=== PATIENT | female | born 1995 | race Caucasian/White ===

== ENCOUNTER 2018-03-26 14:42 | Emergency (ER) | payer OTHER ==
[2018-03-26] MEDS ORDERED: MORPHINE SULFATE 2 MG/ML SYRINGE IM STA (15:05)
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
--- NOTE | 2018-03-26 15:45 | XR ---
EXAMINATION TYPE: XR chest 1V portable DATE OF EXAM: 03/26/2018 COMPARISON: 07/16/2016 INDICATION: Pain TECHNIQUE: Single frontal view of the chest is obtained. FINDINGS: The heart size is normal. The pulmonary vasculature is normal. The lungs are clear. No pneumothorax is evident. Minimal blunting the right costophrenic angle is present. IMPRESSION: 1. Minimal fluid may be at the right costophrenic angle. Chest otherwise unremarkable.
--- NOTE | 2018-03-26 15:47 | XR ---
Fluoroscopy INDICATION: Pain FINDINGS: Left femur is examined in 2 views. No acute fractures are evident. Joint spaces appear pres erved. In the medial left inguinal region there is a radiopaque foreign body of uncertain origin or e tiology. IMPRESSIONS: 1. No acute osseous abnormality. 2. Foreign body in or near the left inguinal region.
[2018-03-26 16:04] VITALS: BP 115/70; PULSE 87; RESP 16; TEMP 98.3
== END 2018-03-26 16:06 | disposition home or self-care (01) ==
LOC: EC 14:42
DX: S00.03XA Contusion of scalp, initial encounter (principal); S70.12XA Contusion of left thigh, initial encounter; S00.81XA Abrasion of other part of head, initial encounter; J45.909 Unspecified asthma, uncomplicated; Z87.891 Personal history of nicotine dependence; V43.52XA Car driver injured in collision with other type car in traffic accident, initial encounter; Y93.89 Activity, other specified; Y92.410 Unspecified street and highway as the place of occurrence of the external cause
CPT/HCPCS: 99284; 96372; 72170; 73552; 71045; 72125; 70486; 70450; J2270

== ENCOUNTER 2018-05-15 16:48 | Emergency (ER) | payer OTHER ==
[2018-05-15 16:59] VITALS: BP 99/65; PULSE 103; RESP 18; TEMP 98.2
[2018-05-15 18:59] LABS: Appearance,Urine Clear (Clear); Bilirubin,Urine Negative (Negative); Blood,Urine Negative (Negative); Color,Urine Yellow; Glucose,Urine (UA) Negative (Negative); Ketones,Urine Negative (Negative); Leukocyte Esterase,Urine Negative (Negative); Nitrite,Urine Negative (Negative); PH, Urine 6.5 (5.0-8.0); Protein,Urine Negative (Negative); Specific Gravity,Urine 1.021 (1.001-1.035)
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
[2018-05-15] MEDS ORDERED: ACETAMINOPHEN TAB 500 MG TAB PO STA (19:51)
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
== END 2018-05-15 21:07 | disposition home or self-care (01) ==
LOC: EC 16:48
DX: O99.89 Other specified diseases and conditions complicating pregnancy, childbirth and the puerperium (principal); M54.5 Low back pain; O99.511 Diseases of the respiratory system complicating pregnancy, first trimester; J45.909 Unspecified asthma, uncomplicated; Z67.10 Type A blood, Rh positive; Z87.891 Personal history of nicotine dependence; Z3A.01 Less than 8 weeks gestation of pregnancy; W10.9XXA Fall (on) (from) unspecified stairs and steps, initial encounter
CPT/HCPCS: 36415; 76801; 81003; 84702; 86900; 86901; 99284

== ENCOUNTER → 2018-07-07 | Outpatient (CLI) | payer OTHER ==
--- NOTE | 2018-07-07 13:50 | US ---
EXAMINATION TYPE: Transabdominal DATE OF EXAM: 01/06/18 COMPARISON: 05/15/2018 CLINICAL HISTORY: Z36 VIABILITY. EXAM PERFORMED: Transabdominal (TA) EXAM MEASUREMENTS: GESTATIONAL AGE / DATING Physician Established: Not yet established Dates by LMP: (13 weeks/2 days) EDC: 01/10/2019 Dates by First Scan: no IUP seen on first scan Dates by Current Scan for: (13 weeks/6 days) EDC: 01/06/2019 MATERNAL ANATOMY Uterus: 10.0 x 8.7 x 10.0cm Right Ovary: 3.3 x 1.7 x 2.8 cm Left Ovary: 3.1 x 1.9 x 2.8 cm Post CDS / Adnexa: wnl Presence of free fluid: none GESTATION / SURVEY CRL: 7.7 cm (13 weeks/6 days) Yolk Sac (normal less than 6mm): not seen Heart Rate: 168 bpm Rhythm: Normal IUP: Viable IUP Date of LMP: 04/05/2018 Viable IUP that correlates with LMP. IMPRESSION: Viable IUP of 13 weeks 6 days with an EDC of 01/06/2019 and heart rate of 168 bpm.
[2018-07-07 14:14] LABS: HCT 38.9 % (34.0-46.0); HGB 13.5 gm/dL (11.4-16.0); MCHC 34.8 g/dL (31.0-37.0); MCV 86.4 fL (80.0-100.0); Mean Platelet Volume 6.3; Platelet Count 262 k/uL (150-450); RBC 4.51 m/uL (3.80-5.40); RDW 12.9 % (11.5-15.5); WBC 7.6 k/uL (3.8-10.6)
[2018-07-07 16:27] LABS: Glucose 61 mg/dL (74-99)
[2018-07-07 22:50] LABS: HIV 1 AB Non-Reactive (Non-Reactive); HIV AB P24 Non-Reactive (Non-Reactive); HIV P24 AG Non-Reactive (Non-Reactive)
[2018-07-08 06:57] LABS: Toxoplasma Antibody (IgG) 23.7 IU/mL (<7.2); Toxoplasma Antibody (IgM) 3.7 AU/mL (<8.0)
== END | disposition home or self-care (01) ==
LOC: RADUSWWP 13:21
PROVIDERS: ATTEND Obstetrics & Gynecology
DX: Z36.9 Encounter for antenatal screening, unspecified (principal); Z34.81 Encounter for supervision of other normal pregnancy, first trimester; Z3A.13 13 weeks gestation of pregnancy
CPT/HCPCS: 36415; 76801; 82565; 82947; 85027; 86762; 86777; 86778; 86780; 86850; 86900; 86901; 87340; 87390

== ENCOUNTER 2018-10-01 07:44 | Emergency (ER) | payer OTHER ==
[2018-10-01 07:50] VITALS: RESP 18; TEMP 97.4
[2018-10-01] MEDS ORDERED: IPRATROPIUM 0.5 MG/2.5 ML NEBU INHALATION STA (07:53)
[2018-10-01] MEDS ORDERED: ALBUTEROL NEBULIZED 2.5 MG/3 ML INHALATION STA (07:53)
[2018-10-01] MEDS ORDERED: DEXAMETHASONE 4 MG TAB PO STA (08:23)
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
[2018-10-01 09:27] VITALS: BP 108/72; PULSE 98
== END 2018-10-01 09:25 | disposition home or self-care (01) ==
LOC: EC 07:44
DX: J45.901 Unspecified asthma with (acute) exacerbation (principal); R00.0 Tachycardia, unspecified; Z87.891 Personal history of nicotine dependence
CPT/HCPCS: 94640; 99285; J8540

== ENCOUNTER 2018-10-10 17:52 | Emergency (ER) | payer OTHER ==
[2018-10-10 17:58] VITALS: BP 107/62; PULSE 110; RESP 18; TEMP 98.1
[2018-10-10] MEDS ORDERED: ACETAMINOPHEN TAB 500 MG TAB PO STA (18:18)
[2018-10-10] MEDS ORDERED: PENICILLIN VK 500MG STARTER 4 TAB BTL PO STA (18:24)
--- NOTE | 2018-10-10 18:25 | ED ---
General Adult HPI - General Chief complaint: ENT Stated complaint: jaw pain Time Seen by Provider: 10/10/18 17:59 Source: patient Mode of arrival: ambulatory Limitations: no limitations - History of Present Illness Initial comments: 23-year-old female patient presents to the emergency department today for evaluation of right upper and lower jaw pain. Patient is 27 weeks . States that just prior to become impressionneeded to have her wisdom teeth removed but was unable to do so due to the . Patient states that she' s had pain to the jaw for the last 2-3 days. States it hurts worse when she bites down on food. She denies any fevers or chills or swelling to the face. She denies any trismus or difficulty swallowing. Patient denies any recent rash , fever, chills, shortness breath, chest pain, abdominal pain, nausea, vomiting , diarrhea, constipation, back pain, numbness, tingling, dizziness, weakness, hematuria, dysuria, urinary urgency, urinary frequency, headache, visual changes , or any other complaints. She denies any vaginal bleeding or discharge. Denies any concerns with the . - Related Data Home Medications Medication Instructions Recorded Confirmed Hok-Ktml-Gjski Acid 1 cap PO DAILY 10/01/18 10/10/18 [-U Capsule (formulary)] Albuterol Sulfate [Proair Hfa] 1 - 2 puff INHALATION RT-QID PRN 10/10/18 Previous Rx's Medication Instructions Recorded Penicillin V Potassium [Pen Vee K] 500 mg PO Q6H #40 tablet 10/10/18 Allergies Allergy/AdvReac Type Severity Reaction Status Date / Time No Known Allergies Allergy Verified 10/10/18 18:14 Review of Systems ROS Statement: Those systems with pertinent positive or pertinent negative responses have been documented in the HPI. ROS Other: All systems not noted in ROS Statement are negative. Past Medical History Past Medical History: Asthma, Seizure Disorder Additional Past Medical History / Comment(s): migraines, pt had seizure in ER -pt states she had a seizure 2 days ago as well. History of Any Multi-Drug Resistant Organisms: None Reported Past Surgical History: No Surgical Hx Reported Past Anesthesia/Blood Transfusion Reactions: No Reported Reaction Past Psychological History: Anxiety, Bipolar, Depression Smoking Status: Former smoker Past Alcohol Use History: None Reported Past Drug Use History: None Reported - Past Family History Mother Additional Family Medical History / Comment(s): Pt states her mother is addicted to heroin and crack. Father Additional Family Medical History / Comment(s): Pt states her father is incarcerated for sexual assault. General Exam Limitations: no limitations General appearance: alert, in no apparent distress, other (Social well-developed , well-nourished adult female patient in no acute distress. Vital signs upon presentation are temperature 98.1F, pulse 110, respirations 18, blood pressure 107/62, pulse ox 100% on room air.) Eye exam: Present: normal appearance, PERRL, EOMI. Absent: scleral icterus, conjunctival injection, periorbital swelling ENT exam: Present: normal exam, normal oropharynx, mucous membranes moist, other (No evidence of gingival erythema or swelling. She does have gingival tenderness over the upper and lower right side.) Respiratory exam: Present: normal lung sounds bilaterally. Absent: respiratory distress, wheezes, rales, rhonchi, stridor Cardiovascular Exam: Present: regular rate, normal rhythm, normal heart sounds. Absent: systolic murmur, diastolic murmur, rubs, gallop, clicks GI/Abdominal exam: Present: soft, normal bowel sounds. Absent: distended, tenderness, guarding, rebound, rigid Neurological exam: Present: alert, oriented X3, CN II-XII intact Psychiatric exam: Present: normal affect, normal mood Skin exam: Present: warm, dry, intact, normal color. Absent: rash Course Vital Signs 10/10/18 17:55 Temperature 98.1 F Pulse Rate 110 H Respiratory 18 Rate Blood Pressure 107/62 O2 Sat by Pulse 100 Oximetry Medical Decision Making - Medical Decision Making 23-year-old female patient presents to the emergency department today for evaluation of right-sided dental pain. Physical examination is relatively unremarkable. She did have gingival tenderness and until tenderness in the right upper and lower. Patient be started on pen VK. She is instructed take Tylenol for pain control do cool compresses. Patient is instructed to follow up with dentist as soon as possible. Return parameters were discussed in detail. She verbalizes understanding and agrees with this plan. Disposition Clinical Impression: Pain, dental Disposition: HOME SELF-CARE Condition: Good Instructions: Toothache (ED) Additional Instructions: Take medication as directed. Follow up with the dentist as soon as possible. Return to the emergency department for recheck for any new, worsening, or concerning symptoms. Prescriptions: Penicillin V Potassium [Pen Vee K] 500 mg PO Q6H #40 tablet Is patient prescribed a controlled substance at d/c from ED?: No Referrals: Katherine Johnson MD [Primary Care Provider] - 1-2 days Time of Disposition: 18:25
== END 2018-10-10 19:00 | disposition home or self-care (01) ==
LOC: EC 17:52
DX: O99.612 Diseases of the digestive system complicating pregnancy, second trimester (principal); K08.89 Other specified disorders of teeth and supporting structures; O99.89 Other specified diseases and conditions complicating pregnancy, childbirth and the puerperium; R68.84 Jaw pain; O99.512 Diseases of the respiratory system complicating pregnancy, second trimester; J45.909 Unspecified asthma, uncomplicated; Z87.891 Personal history of nicotine dependence; Z3A.27 27 weeks gestation of pregnancy
CPT/HCPCS: 99283

== ENCOUNTER → 2018-10-23 | Outpatient (CLI) | payer OTHER ==
--- NOTE | 2018-10-23 16:36 | US ---
EXAMINATION TYPE: US OB anatomy transabd DATE OF EXAM: 10/23/2018 COMPARISON: NONE HISTORY: O99.513 Diseases of the respiratory system Asthma TECHNIQUE: Transabdominal (TA) EXAM MEASUREMENTS: GESTATIONAL AGE / DATING Physician Established: (28 weeks/6 days) EDC: 01/09/19 Dates by LMP: (28 weeks/5 days) EDC: 01/10/19 Dates by First Scan: (29 weeks/2 days) EDC: 01/06/19 Dates by Current Scan for: (28 weeks/5 days) EDC: 01/10/19 SURVEY IUP: Single PLACENTA: Posterior PREVIA: No previa MANDY: 12.4 cm Normal CERVICAL LENGTH (transabdominal: norm > 3.0cm): 3.1 cm BIOMETRY PRESENTATION: Vertex LIE: Longitudinal BPD: 7.4 cm 29 weeks / 6 days HC: 26.9 cm 29 weeks / 3 days AC: 23.7 cm 28 weeks / 0 days FL: 5.5 cm 29 weeks / 1 days ESTIMATED WEIGHT IN GRAMS: 1255 grams ESTIMATED WEIGHT IN LBS/OZ: 2 lbs. 12 oz. WEIGHT PERCENTAGE BASED ON ESTABLISHED DATE: 28.3 % HC/AC: 1.14 Normal FL/AC: 23.31 Normal HEART RATE: 139 bpm RHYTHM: Normal ANATOMY SEEN (within normal limits): Four Chamber Heart Outflow tracts: LVOT/RVOT Nose / Lips Diaphragm Kidneys (bilateral) Bladder Cord Insert Three Vessel Cord Arms (bilateral) Legs (bilateral) ANATOMY NOT SEEN: due to position * Lateral Vent (< 1 cm) * Cisterna Magna (< 1.1 cm) * Nuchal Fold (< 0.6 cm) * Cerebellum (varies with age) Choroid Plexus (bilateral) Midline Falx Cavus Septi Pellucidi Stomach Situs Longitudinal Spine Transverse Spine IMPRESSION: 1. Single intrauterine gestation estimated at 28 weeks 5 days gestation based on the current ultrasou nd measurements. Cardiac activity measures 139 bpm. 2. Due to the gestational age russ small parts evaluation is very limited. Follow-up can be perform ed.
== END | disposition home or self-care (01) ==
LOC: RADUSWWP 13:08
PROVIDERS: ATTEND Obstetrics & Gynecology
DX: O99.513 Diseases of the respiratory system complicating pregnancy, third trimester (principal); Z3A.28 28 weeks gestation of pregnancy; J45.909 Unspecified asthma, uncomplicated
CPT/HCPCS: 76811

== ENCOUNTER 2019-01-08 06:00 | Inpatient (IN) | payer OTHER ==
[2019-01-08] MEDS ORDERED: TERBUTALINE 1 MG/ML VIAL SQ PRN (06:15)
[2019-01-08] MEDS ORDERED: METHYLERGONOVINE 0.2 MG/ML 1 ML AMP IM PRN (06:15)
[2019-01-08] MEDS ORDERED: LIDOCAINE 0.5% (PF) 5 MG/ML (50 ML SDV) SQ PRN (06:15)
[2019-01-08] MEDS ORDERED: CARBOPROST TROMETHAMINE 250 MCG/ML 1 ML AMP IM PRN (06:15)
[2019-01-08] MEDS ORDERED: OXYTOCIN 10 UNIT/ML 1 ML VIAL IM PRN (06:15)
[2019-01-08] MEDS: LACTATED RINGERS 1,000 ML IV SCH ×2 (06:36→12:30)
[2019-01-08 06:39] LABS: Basophils % (A) 0 %; Eosinophils # (A) 0.2 k/uL (0-0.7); Eosinophils % (A) 2 %; HCT 33.3 % (34.0-46.0); HGB 11.1 gm/dL (11.4-16.0); Hypochromasia Slight; Lymphocytes % (A) 19 %; MCH 25.6 pg (25.0-35.0); MCHC 33.3 g/dL (31.0-37.0); MCV 76.9 fL (80.0-100.0); Mean Platelet Volume 8.6; Monocytes # (A) 0.6 k/uL (0-1.0); Monocytes % (A) 6 %; Neutrophils # (A) 7.6 k/uL (1.3-7.7); Neutrophils % (A) 72 %; Platelet Count 360 k/uL (150-450); RBC 4.33 m/uL (3.80-5.40); RDW 15.1 % (11.5-15.5); WBC 10.5 k/uL (3.8-10.6)
[2019-01-08] MEDS ORDERED: OXYTOCIN 30 UNITS/500 ML NS 30 UNIT in SALINE 1 500ML.BAG IV SCH (06:45)
[2019-01-08 06:49] VITALS: BMI 27.8
[2019-01-08] MEDS ORDERED: BUTORPHANOL 1 MG/ML 1 ML VIAL IV PRN (10:49)
--- NOTE | 2019-01-08 12:31 | P.HPOB ---
History of Present Illness H&P Date: 01/08/19 Chief Complaint: Induction of labor 23 year old presents at 39 weeks and 6 days for induction of labor. Her cervix was 1cm, 90% effaced, -2 station. Piper irregularly. heart tones 130 with moderate variability and accelerations. Category 1 tracing. Review of Systems All systems: negative Constitutional: Denies chills, Denies fever Eyes: denies blurred vision, denies pain Ears, nose, mouth and throat: Denies headache, Denies sore throat Cardiovascular: Denies chest pain, Denies shortness of breath Respiratory: Denies cough Gastrointestinal: Denies abdominal pain, Denies diarrhea, Denies nausea, Denies vomiting Genitourinary: Denies dysuria, Denies hematuria Musculoskeletal: Denies myalgias Integumentary: Denies pruritus, Denies rash Neurological: Denies numbness, Denies weakness Psychiatric: Denies anxiety, Denies depression Endocrine: Denies fatigue, Denies weight change Past Medical History Past Medical History: Asthma, Seizure Disorder Additional Past Medical History / Comment(s): migraines, pt had seizure in ER 09/11/16, no seizures since. Obstetric history: This is her first and she's had care with me since 11 weeks gestation. Her EDC is consistent with a 13 week ultrasound. Blood type A+, antibodies negative, HIV negative, treponema and by negative, trace B-, rubella immune, toxoplasmosis negative. On the anatomy ultrasound there was an echogenic intracardiac focus. She did see MFM and had an echocardiogram with this which was normal. GBS negative. History of Any Multi-Drug Resistant Organisms: None Reported Past Surgical History: No Surgical Hx Reported Past Anesthesia/Blood Transfusion Reactions: No Reported Reaction Past Psychological History: Anxiety, Bipolar, Depression Smoking Status: Former smoker Past Alcohol Use History: None Reported Additional Past Alcohol Use History / Comment(s): Pt states she started smoking at the age of 16 or 17 yrs and quit October of 2015. Past Drug Use History: None Reported - Past Family History Mother Additional Family Medical History / Comment(s): Pt states her mother is addicted to heroin and crack. Father Additional Family Medical History / Comment(s): Pt states her father is incarcerated for sexual assault. Medications and Allergies Home Medications Medication Instructions Recorded Confirmed Type Ocn-Ysro-Jtimm Acid 1 cap PO DAILY 12/27/18 04/05/19 History [-U Capsule (formulary)] Albuterol Sulfate [Proair Hfa] 1 - 2 puff INHALATION RT-QID PRN 10/10/18 01/08/19 History Allergies Allergy/AdvReac Type Severity Reaction Status Date / Time No Known Allergies Allergy Verified 01/08/19 06:13 Exam Osteopathic Statement: *. No significant issues noted on an osteopathic structural exam other than those noted in the History and Physical/Consult. Vital Signs Temp Pulse Resp BP 01/08/19 06:13 98.1 F 107 H 16 117/68 Intake and Output 01/07/19 01/08/19 01/08/19 22:59 06:59 14:59 Other: Weight 68.946 kg Results Result Diagrams: 01/08/19 06:30 Abnormal Lab Results - Last 24 Hours (Table) 01/08/19 Range/Units 06:30 Hgb 11.1 L (11.4-16.0) gm/dL Hct 33.3 L (34.0-46.0) % MCV 76.9 L (80.0-100.0) fL
[2019-01-08] MEDS ORDERED: fentaNYL (PF) 50 MCG/ML 5 ML AMP ONE (12:38)
[2019-01-08] MEDS ORDERED: SODIUM CHLORIDE 0.9% 100 ML BAG ONE (12:38)
[2019-01-08] MEDS ORDERED: ROPIVACAINE 5MG/ML 20ML VIAL ONE (12:38)
[2019-01-09] MEDS ORDERED: ACETAMINOPHEN TAB 325 MG TAB PO PRN (00:15)
[2019-01-09] MEDS ORDERED: diphenhydrAMINE 25 MG CAP PO PRN (00:15)
[2019-01-09] MEDS ORDERED: LANOLIN CREAM 5 GM TUBE TOPICAL PRN (00:15)
[2019-01-09] MEDS ORDERED: WITCH HAZEL 1 EACH MED..PAD TOPICAL PRN (00:15)
[2019-01-09] MEDS ORDERED: BENZOCAINE/MENTHOL SPRAY 1 GM/SPRAY AEROSOL TOPICAL PRN (00:15)
[2019-01-09] MEDS ORDERED: ZOLPIDEM 5 MG TAB PO PRN (00:15)
[2019-01-09] MEDS ORDERED: diphenhydrAMINE 50 MG CAP PO PRN (00:15)
[2019-01-09] MEDS ORDERED: SIMETHICONE 80 MG CHEWABLE PO PRN (00:15)
[2019-01-09] MEDS ORDERED: HYDROCORTISONE 2.5% RECTAL CREAM 30 GM TUBE RECTAL PRN (00:15)
[2019-01-09] MEDS: IBUPROFEN 600 MG TAB PO PRN ×2 (02:16→20:49)
--- NOTE | 2019-01-09 08:20 | P.PNOBGVD ---
Subjective - Subjective Principal diagnosis: Status post normal vaginal delivery post day #1 Interval history: Patient seen and examined. Denies nausea, vomiting, chest pain, shortness of breath or calf pain. She is staying in the hospital today because her baby's jaundiced level is a little elevated. Patient reports: Reports appetite normal, Reports voiding normally, Reports pain well controlled, Reports ambulating normally Objective - Latest Vital Signs Latest vital signs: Vital Signs Temp Pulse Resp BP 01/09/19 04:00 97.8 F 85 16 109/68 01/09/19 00:00 98.1 F 91 16 121/70 01/08/19 20:00 97.6 F 81 16 106/71 01/08/19 18:16 98.1 F 101 H 16 126/62 01/08/19 17:47 99.3 F 95 16 113/66 01/08/19 17:17 96 16 111/59 01/08/19 17:02 94 16 113/61 01/08/19 16:47 108 H 16 110/64 01/08/19 16:32 102 H 16 113/57 01/08/19 16:17 98.7 F 103 H 16 120/59 Intake and Output 01/08/19 01/09/19 01/09/19 22:59 06:59 14:59 Other: # Voids 1 1 - Exam Lungs: bilateral: normal Chest: Normal S1, Normal S2 Extremities: Present: normal Abdomen: Present: normal appearance, soft Uterus: Present: normal, firm Assessment and Plan (1) Status post normal vaginal delivery Current Visit: Yes Status: Acute Code(s): OTO9251 - SNOMED Code(s): 930518660 Plan: 1. Increase ambulation 2. Post care
[2019-01-09] MEDS: SENNOSIDES-DOCUSATE SODIUM 1 EACH TAB PO SCH ×2 (19:03→20:49)
--- NOTE | 2019-01-09 23:35 | P.PROBDLV ---
Vaginal Delivery Note - . Vaginal Delivery Note: 23 year old presents at 39 weeks and 6 days for induction of labor. Her cervix was 1cm, 90% effaced, -2 station. Piper irregularly. heart tones 130 with moderate variability and accelerations. Category 1 tracing. Pitocin was started, and amniotomy was performed at 7:52 AM, clear fluid noted. When she was uncomfortable patient did get an epidural. Her cervix was completely dilated at 1518. She pushed, delivered a viable male over intact perineum under epidural anesthesia at 1557. Head delivered OA, anterior shoulder delivered gentle downward guidance followed by posterior shoulder and rest of body. Nose and mouth bulb suctioned, cord clamped and cut, infant placed on mother's abdomen. Apgars 9, 9, weight 7 lbs. 11 oz. Placenta delivered spontaneously, intact with three-vessel cord at 1559. Vagina, cervix, and perineum were inspected. A right periurethral and a second-degree midline laceration was repaired with 2-0 Vicryl and 3-0 Vicryl. Estimated blood loss 200 mL. Mother and baby in stable condition.
[2019-01-10 03:40] VITALS: RESP 16
[2019-01-10 07:34] LABS: Basophils % (A) 0 %; Eosinophils # (A) 0.3 k/uL (0-0.7); Eosinophils % (A) 2 %; HCT 26.7 % (34.0-46.0); Hypochromasia Slight; Lymphocytes # (A) 2.2 k/uL (1.0-4.8); Lymphocytes % (A) 20 %; MCH 26.5 pg (25.0-35.0); MCHC 33.7 g/dL (31.0-37.0); MCV 78.7 fL (80.0-100.0); Mean Platelet Volume 7.1; Monocytes # (A) 0.7 k/uL (0-1.0); Monocytes % (A) 7 %; Neutrophils # (A) 7.6 k/uL (1.3-7.7); Neutrophils % (A) 70 %; Platelet Count 313 k/uL (150-450); Poikilocytosis Slight; RBC 3.39 m/uL (3.80-5.40); RDW 14.8 % (11.5-15.5); WBC 10.9 k/uL (3.8-10.6)
[2019-01-10] MEDS: SENNOSIDES-DOCUSATE SODIUM 1 EACH TAB PO SCH (07:48)
--- NOTE | 2019-01-10 08:20 | P.DS ---
Providers Date of admission: 01/08/19 06:00 Expected date of discharge: 01/10/19 Attending physician: Priyanka Mejia Primary care physician: Stated None - Discharge Diagnosis(es) (1) Status post normal vaginal delivery Current Visit: Yes Status: Acute Hospital Course: Patient presented for induction of labor. She underwent normal vaginal delivery. Her course was uncomplicated. She'll be discharged home day #2 in stable condition to follow-up with me in 6 weeks. Plan - Discharge Summary New Discharge Prescriptions: New Ibuprofen [Motrin] 600 mg PO Q6HR PRN #30 tab PRN Reason: Mild Pain Or Fever >= 100.5 No Action Lqy-Fbms-Guusq Acid [-U Capsule (formulary)] 1 cap PO DAILY Albuterol Sulfate [Proair Hfa] 1 - 2 puff INHALATION RT-QID PRN PRN Reason: Shortness Of Breath Discharge Medication List Ecr-Temg-Sqpmi Acid [-U Capsule (formulary)] 1 cap PO DAILY 10/01/18 [History] Albuterol Sulfate [Proair Hfa] 1 - 2 puff INHALATION RT-QID PRN 10/10/18 [History] Ibuprofen [Motrin] 600 mg PO Q6HR PRN #30 tab 01/10/19 [Rx] Follow up Appointment(s)/Referral(s): Priyanka Mejia DO [Doctor of Osteopathic Medicine] - 6 Weeks Discharge Disposition: HOME SELF-CARE
[2019-01-10 08:44] VITALS: BP 112/72; PULSE 80; TEMP 98.2
== END 2019-01-10 11:40 | disposition home or self-care (01) | DRG 807 ==
LOC: 4FBP 06:00
PROVIDERS: ADMIT Obstetrics & Gynecology; ATTEND Obstetrics & Gynecology
PROC: 10E0XZZ Delivery of Products of Conception, External Approach (ICD-10-PCS; principal; 2019-01-08)
PROC: 0KQM0ZZ Repair Perineum Muscle, Open Approach (ICD-10-PCS; 2019-01-08)
PROC: 10907ZC Drainage of Amniotic Fluid, Therapeutic from Products of Conception, Via Natural or Artificial Opening (ICD-10-PCS; 2019-01-08)
PROC: 3E033VJ Introduction of Other Hormone into Peripheral Vein, Percutaneous Approach (ICD-10-PCS; 2019-01-08)
PROC: 00HU33Z Insertion of Infusion Device into Spinal Canal, Percutaneous Approach (ICD-10-PCS; 2019-01-08)
PROC: 3E0R3BZ Introduction of Anesthetic Agent into Spinal Canal, Percutaneous Approach (ICD-10-PCS; 2019-01-08)
DX: O99.354 Diseases of the nervous system complicating childbirth (principal); Z37.0 Single live birth; O99.52 Diseases of the respiratory system complicating childbirth; O70.1 Second degree perineal laceration during delivery; G40.909 Epilepsy, unspecified, not intractable, without status epilepticus; O99.344 Other mental disorders complicating childbirth; F31.9 Bipolar disorder, unspecified; F41.9 Anxiety disorder, unspecified; J45.909 Unspecified asthma, uncomplicated; G43.909 Migraine, unspecified, not intractable, without status migrainosus; Z3A.39 39 weeks gestation of pregnancy; Z87.891 Personal history of nicotine dependence
CPT/HCPCS: 85025; 86850; 86900; 86901

== ENCOUNTER → 2019-09-01 | Outpatient (CLI) | payer OTHER ==
--- NOTE | 2019-09-01 15:30 | US ---
EXAMINATION TYPE: Transabdominal DATE OF EXAM: 09/01/2019 2:26 PM COMPARISON: NONE CLINICAL HISTORY: Z36 confirm dates. Dates positive beta-hCG test. EXAM PERFORMED: Transabdominal (TA) EXAM MEASUREMENTS: GESTATIONAL AGE / DATING Dates by LMP: (12 weeks/5 days) EDC: 03/10/2020 Dates by First Scan: No previous this is first scan Dates by Current Scan for: (10 weeks/3 days) EDC: 03/26/2020 MATERNAL ANATOMY Uterus: 8.4 x 8.7 x 7.1 cm Right Ovary: 2.6 x 1.3 x 1.5 cm Left Ovary: 3.2 x 2.2 x 2.1 cm Post CDS / Adnexa: no free fluid Presence of free fluid: no Presence of corpus luteal cyst: no Presence of subchorionic bleed: no GESTATION / SURVEY CRL: 3.6 cm (10 weeks/3 days) MSD: seen, not measured Yolk Sac (normal less than 6mm): 5.0 mm Heart Rate: 172 bpm Rhythm: Normal IUP: Viable IUP Date of LMP: 06/04/2019, Beta HcG (if available): Not available at this time Single live IUP measuring 10 weeks 3 days. Single live intrauterine gestation is confirmed as gestational sac, yolk sac, pole are present. No free fluid in pelvic cul-de-sac. Both ovaries are seen. No suspicious extraovarian adnexal masses. IMPRESSION: Single live intrauterine gestation, mean crown-rump length is 3.6 cm corresponding to 10 week 3 day old fetus.
== END | disposition home or self-care (01) ==
LOC: RADUSWWP 14:05
PROVIDERS: ATTEND Obstetrics & Gynecology
DX: Z36.89 Encounter for other specified antenatal screening (principal); Z3A.10 10 weeks gestation of pregnancy
CPT/HCPCS: 76801

== ENCOUNTER 2019-09-27 20:58 | Emergency (ER) | payer OTHER ==
[2019-09-27 21:09] VITALS: TEMP 97.8
--- NOTE | 2019-09-27 21:56 | ED ---
Abdominal Pain HPI - General Chief Complaint: Abdominal Pain Stated Complaint: Abd Pain-14 wks Time Seen by Provider: 09/27/19 21:11 Source: patient Mode of arrival: ambulatory Limitations: no limitations - History of Present Illness Initial Comments: 24-year-old female presenting today for chief complaint of lower abdominal cramping. Patient states she is currently [address] Mejia. She states that she has had cramping for the past 2 days. Denies vaginal bleeding. Denies back pain denies fever or flulike symptoms. Patient denies any flank pain or history of kidney stones. Patient denies any uncontrolled nausea or vomiting. She states she has had some slight weakness denies any chest pain or shortness of breath. Remaining review of systems negative upon arrival patient appears well besides acute distress afebrile. - Related Data Home Medications Medication Instructions Recorded Confirmed Grv-Mscf-Wodcn Acid 1 cap PO DAILY 10/01/18 01/08/19 [-U Capsule (formulary)] Albuterol Sulfate [Proair Hfa] 1 - 2 puff INHALATION RT-QID PRN 10/10/18 Previous Rx's Medication Instructions Recorded Ibuprofen [Motrin] 600 mg PO Q6HR PRN #30 tab 01/10/19 Cephalexin [Keflex] 500 mg PO Q6HR 7 Days #28 cap 09/27/19 Allergies Allergy/AdvReac Type Severity Reaction Status Date / Time No Known Allergies Allergy Verified 09/27/19 21:09 Review of Systems ROS Statement: Those systems with pertinent positive or pertinent negative responses have been documented in the HPI. ROS Other: All systems not noted in ROS Statement are negative. Past Medical History Past Medical History: Asthma, Seizure Disorder Additional Past Medical History / Comment(s): migraines, pt had seizure in ER 09/11/16, no seizures since. Obstetric history: This is her first and she's had care with me since 11 weeks gestation. Her EDC is consistent with a 13 week ultrasound. Blood type A+, antibodies negative, HIV negative, treponema and by negative, trace B-, rubella immune, toxoplasmosis negative. On the anatomy ultrasound there was an echogenic intracardiac focus. She did see MFM and had an echocardiogram with this which was normal. GBS negative. History of Any Multi-Drug Resistant Organisms: None Reported Past Surgical History: No Surgical Hx Reported Past Anesthesia/Blood Transfusion Reactions: No Reported Reaction Past Psychological History: Anxiety, Bipolar, Depression Smoking Status: Former smoker Past Alcohol Use History: None Reported Past Drug Use History: None Reported - Past Family History Mother Additional Family Medical History / Comment(s): Pt states her mother is addicted to heroin and crack. Father Additional Family Medical History / Comment(s): Pt states her father is incarcerated for sexual assault. General Exam - General Exam Comments Initial Comments: General: The patient is awake and alert, in no distress, and does not appear acutely ill. Eye: +3 mm pupils are equal, round and reactive to light, extra-ocular movements are intact. No nystagmus. There is normal conjunctiva bilaterally. No signs of icterus. Ears, nose, mouth and throat: There are moist mucous membranes and no oral lesions. Neck: The neck is supple, there is no tenderness or JVD. Cardiovascular: There is a regular rate and rhythm. No murmur, rub or gallop is appreciated. Respiratory: Lungs are clear to auscultation, respirations are non-labored, breath sounds are equal. No wheezes, stridor, rales, or rhonchi. Gastrointestinal: Soft, non-distended, mild discomfort over the superior bladder margin otherwise abdomen is nontender and without masses or organomegaly noted. There is no rebound or guarding present. No CVA tenderness. Musculoskeletal: Normal ROM, no tenderness. Strength 5/5. Sensation intact. Radial pulses equal bilaterally 2+. Neurological: A&O x 3. CN II-XII intact grossly, There are no obvious motor or sensory deficits. Coordination appears grossly intact. Speech is normal. Skin: Skin is warm and dry and no rashes or lesions are noted. No LE edema. Psychiatric: Cooperative, appropriate mood & affect, normal judgment. Limitations: no limitations Course Vital Signs 09/27/19 09/27/19 21:07 23:29 Temperature 97.8 F Pulse Rate 82 68 Respiratory 18 16 Rate Blood Pressure 108/72 100/43 O2 Sat by Pulse 98 Oximetry Medical Decision Making - Medical Decision Making 24-year-old female presenting today for chief complaint of lower abdominal pain cramping in nature. Patient denies dysuria or urgency frequency. Patient found a positive nitrates consistent with urinary tract infection. Denies vaginal bleeding ultrasound revealed intrauterine without any complicating process. Discussed findings with Dr. Gutierrez revenue liaison OBGYN for patient kandy alvarenga Dr. Mejia> he is agreeable to treatment with keflex. Urine cultures and discharge home with outpatient follow-up. Return parameters including flank pain fevers vaginal bleeding were discussed at length the patient verbalized understanding patient was discharged appearing well - Lab Data Result diagrams: 09/27/19 21:50 09/27/19 21:50 Lab Results 09/27/19 09/27/19 09/27/19 Range/Units 21:50 21:50 21:50 WBC 8.6 (3.8-10.6) k/uL RBC 4.63 (3.80-5.40) m/uL Hgb 13.2 (11.4-16.0) gm/dL Hct 39.0 (34.0-46.0) % MCV 84.2 (80.0-100.0) fL MCH 28.5 (25.0-35.0) pg MCHC 33.8 (31.0-37.0) g/dL RDW 13.8 (11.5-15.5) % Plt Count 244 (150-450) k/uL Neutrophils % 70 % Lymphocytes % 23 % Monocytes % 4 % Eosinophils % 1 % Basophils % 0 % Neutrophils # 6.1 (1.3-7.7) k/uL Lymphocytes # 2.0 (1.0-4.8) k/uL Monocytes # 0.4 (0-1.0) k/uL Eosinophils # 0.1 (0-0.7) k/uL Basophils # 0.0 (0-0.2) k/uL Sodium 136 L (137-145) mmol/L Potassium 3.6 (3.5-5.1) mmol/L Chloride 107 (98-107) mmol/L Carbon Dioxide 22 (22-30) mmol/L Anion Gap 7 mmol/L BUN 6 L (7-17) mg/dL Creatinine 0.45 L (0.52-1.04) mg/dL Est GFR (CKD-EPI)AfAm >90 (>60 ml/min/1.73 sqM) Est GFR (CKD-EPI)NonAf >90 (>60 ml/min/1.73 sqM) Glucose 73 L (74-99) mg/dL Calcium 9.0 (8.4-10.2) mg/dL Total Bilirubin 0.2 (0.2-1.3) mg/dL AST 18 (14-36) U/L ALT 9 (4-34) U/L Alkaline Phosphatase 48 (38-126) U/L Total Protein 6.5 (6.3-8.2) g/dL Albumin 3.6 (3.5-5.0) g/dL HCG, Quant 14548.0 mIU/mL Urine Color Urine Appearance (Clear) Urine pH (5.0-8.0) Ur Specific [place] (1.001-1.035) Urine Protein (Negative) Urine Glucose (UA) (Negative) Urine Ketones (Negative) Urine Blood (Negative) Urine Nitrite (Negative) Urine Bilirubin (Negative) Urine Urobilinogen (<2.0) mg/dL Ur Leukocyte Esterase (Negative) Urine RBC (0-5) /hpf Urine WBC (0-5) /hpf Ur Squamous Epith Cells (0-4) /hpf Urine Bacteria (None) /hpf Urine Mucus (None) /hpf Blood Type A Positive Blood Type Recheck A Pos Bld Type Recheck Status No 09/27/19 Range/Units 22:20 WBC (3.8-10.6) k/uL RBC (3.80-5.40) m/uL Hgb (11.4-16.0) gm/dL Hct (34.0-46.0) % MCV (80.0-100.0) fL MCH (25.0-35.0) pg MCHC (31.0-37.0) g/dL RDW (11.5-15.5) % Plt Count (150-450) k/uL Neutrophils % % Lymphocytes % % Monocytes % % Eosinophils % % Basophils % % Neutrophils # (1.3-7.7) k/uL Lymphocytes # (1.0-4.8) k/uL Monocytes # (0-1.0) k/uL Eosinophils # (0-0.7) k/uL Basophils # (0-0.2) k/uL Sodium (137-145) mmol/L Potassium (3.5-5.1) mmol/L Chloride (98-107) mmol/L Carbon Dioxide (22-30) mmol/L Anion Gap mmol/L BUN (7-17) mg/dL Creatinine (0.52-1.04) mg/dL Est GFR (CKD-EPI)AfAm (>60 ml/min/1.73 sqM) Est GFR (CKD-EPI)NonAf (>60 ml/min/1.73 sqM) Glucose (74-99) mg/dL Calcium (8.4-10.2) mg/dL Total Bilirubin (0.2-1.3) mg/dL AST (14-36) U/L ALT (4-34) U/L Alkaline Phosphatase (38-126) U/L Total Protein (6.3-8.2) g/dL Albumin (3.5-5.0) g/dL HCG, Quant mIU/mL Urine Color Yellow Urine Appearance Cloudy H (Clear) Urine pH 5.5 (5.0-8.0) Ur Specific [place] 1.025 (1.001-1.035) Urine Protein Trace H (Negative) Urine Glucose (UA) Negative (Negative) Urine Ketones Negative (Negative) Urine Blood Negative (Negative) Urine Nitrite Positive H (Negative) Urine Bilirubin Negative (Negative) Urine Urobilinogen <2.0 (<2.0) mg/dL Ur Leukocyte Esterase Small H (Negative) Urine RBC 1 (0-5) /hpf Urine WBC 2 (0-5) /hpf Ur Squamous Epith Cells 15 H (0-4) /hpf Urine Bacteria Rare H (None) /hpf Urine Mucus Many H (None) /hpf Blood Type Blood Type Recheck Bld Type Recheck Status Disposition Clinical Impression: UTI (urinary tract infection), Abdominal cramping affecting Disposition: HOME SELF-CARE Condition: Good Instructions (If sedation given, give patient instructions): Urinary Tract Infection in (ED) Prescriptions: Cephalexin [Keflex] 500 mg PO Q6HR 7 Days #28 cap Is patient prescribed a controlled substance at d/c from ED?: No Referrals: None,Stated [Primary Care Provider] - 1-2 days Priyanka Mejia DO [Doctor of Osteopathic Medicine] - 1-2 days Time of Disposition: 23:12
[2019-09-27 22:16] LABS: Basophils % (A) 0 %; Eosinophils # (A) 0.1 k/uL (0-0.7); Eosinophils % (A) 1 %; HGB 13.2 gm/dL (11.4-16.0); Lymphocytes % (A) 23 %; MCH 28.5 pg (25.0-35.0); MCHC 33.8 g/dL (31.0-37.0); MCV 84.2 fL (80.0-100.0); Monocytes # (A) 0.4 k/uL (0-1.0); Monocytes % (A) 4 %; Neutrophils # (A) 6.1 k/uL (1.3-7.7); Neutrophils % (A) 70 %; Platelet Count 244 k/uL (150-450); RBC 4.63 m/uL (3.80-5.40); RDW 13.8 % (11.5-15.5); WBC 8.6 k/uL (3.8-10.6)
[2019-09-27 22:23] LABS: ALT 9 U/L (4-34); AST 18 U/L (14-36); African American GFR (CKD) >90 (>60 ml/min/1.73 sqM); Albumin 3.6 g/dL (3.5-5.0); Alkaline Phosphatase 48 U/L (38-126); Anion Gap 7 mmol/L; Blood Urea Nitrogen 6 mg/dL (7-17); Carbon Dioxide 22 mmol/L (22-30); Chloride 107 mmol/L (98-107); Glucose 73 mg/dL (74-99); Non-African American GFR(CKD) >90 (>60 ml/min/1.73 sqM); Potassium 3.6 mmol/L (3.5-5.1); Sodium 136 mmol/L (137-145); Total Bilirubin 0.2 mg/dL (0.2-1.3); Total Protein 6.5 g/dL (6.3-8.2)
[2019-09-27 22:44] LABS: Appearance,Urine Cloudy (Clear); Bacteria,Urine Rare /hpf; Bilirubin,Urine Negative (Negative); Blood,Urine Negative (Negative); Color,Urine Yellow; Glucose,Urine (UA) Negative (Negative); Ketones,Urine Negative (Negative); Leukocyte Esterase,Urine Small (Negative); Mucus,Urine Many /hpf; Nitrite,Urine Positive (Negative); PH, Urine 5.5 (5.0-8.0); Protein,Urine Trace (Negative); RBC,Urine 1 /hpf (0-5); Specific Gravity,Urine 1.025 (1.001-1.035); Squamous Epithelial Cell,Urine 15 /hpf (0-4); Urobilinogen,Urine <2.0 mg/dL (<2.0); WBC,Urine 2 /hpf (0-5)
--- NOTE | 2019-09-27 23:04 | US ---
EXAMINATION TYPE: Transabdominal DATE OF EXAM: 09/27/2019 10:43 PM COMPARISON: US 201809/01/2019 CLINICAL HISTORY: bleeding and pain in . Pain in x couple hours. . EXAM PERFORMED: Transabdominal (TA) EXAM MEASUREMENTS: GESTATIONAL AGE / DATING Physician Established: (14 weeks/1 day) EDC: . Patient's OB changed to this date. Dates by LMP: Unknown Dates by First Scan: (14 weeks/1 day) EDC: 03/26/2020 Dates by Current Scan for: (14 weeks/0 days) EDC: 03/25/2020 MATERNAL ANATOMY Uterus: 10.5 x 11.3 x 8.9 cm. Right Ovary: 3.5 x 2.5 x 2.1 cm. Left Ovary: 3.6 x 2.1 x 1.7 cm. Post CDS / Adnexa: Appear to be wnl Presence of free fluid: not seen Presence of corpus luteal cyst: not seen Presence of subchorionic bleed: not seen GESTATION / SURVEY CRL: 8.00 cm (14 weeks/0 days) Yolk Sac (normal less than 6mm): not seen Heart Rate: 159 bpm Rhythm: Normal IUP: Viable IUP Date of LMP: Unknown Beta HcG (if available): not available IMPRESSION: There is normal growth compared to last exam. No complicating process.
[2019-09-27] MEDS ORDERED: CEPHALEXIN 500MG STARTER PACK 4 CAP BTL PO STA (23:05)
[2019-09-27 23:30] VITALS: BP 100/43; PULSE 68; RESP 16
== END 2019-09-27 23:30 | disposition home or self-care (01) ==
LOC: EC 20:58
DX: O23.42 Unspecified infection of urinary tract in pregnancy, second trimester (principal); O99.512 Diseases of the respiratory system complicating pregnancy, second trimester; J45.909 Unspecified asthma, uncomplicated; Z79.51 Long term (current) use of inhaled steroids; Z3A.14 14 weeks gestation of pregnancy; Z87.891 Personal history of nicotine dependence
CPT/HCPCS: 36415; 76801; 80053; 81001; 84702; 85025; 86900; 86901; 99284

== ENCOUNTER 2020-01-11 20:13 | Outpatient (CLI) | payer OTHER ==
[2020-01-11 21:26] LABS: Basophils % (A) 0 %; Eosinophils % (A) 0 %; HCT 34.8 % (34.0-46.0); HGB 11.5 gm/dL (11.4-16.0); Lymphocytes # (A) 1.1 k/uL (1.0-4.8); Lymphocytes % (A) 7 %; MCH 27.7 pg (25.0-35.0); MCV 83.8 fL (80.0-100.0); Mean Platelet Volume 7.3; Monocytes # (A) 0.8 k/uL (0-1.0); Monocytes % (A) 5 %; Neutrophils # (A) 14.1 k/uL (1.3-7.7); Neutrophils % (A) 87 %; Platelet Count 287 k/uL (150-450); RBC 4.16 m/uL (3.80-5.40); RDW 12.9 % (11.5-15.5); WBC 16.2 k/uL (3.8-10.6)
[2020-01-11 21:32] LABS: Appearance,Urine Clear (Clear); Bacteria,Urine Rare /hpf; Bilirubin,Urine Negative (Negative); Blood,Urine Negative (Negative); Color,Urine Yellow; Glucose,Urine (UA) Negative (Negative); Ketones,Urine 1+ (Negative); Leukocyte Esterase,Urine Trace (Negative); Mucus,Urine Many /hpf; Nitrite,Urine Positive (Negative); PH, Urine 6.5 (5.0-8.0); Protein,Urine Trace (Negative); RBC,Urine 1 /hpf (0-5); Specific Gravity,Urine 1.024 (1.001-1.035); Squamous Epithelial Cell,Urine 1 /hpf (0-4); Urobilinogen,Urine <2.0 mg/dL (<2.0); WBC,Urine 7 /hpf (0-5)
[2020-01-11 21:46] LABS: Amphetamine Screen,Urine Not Detected (NotDetected); Barbiturate Screen,Urine Not Detected (NotDetected); Benzodiazepines Screen,Urine Not Detected (NotDetected); Cocaine Screen,Urine Not Detected (NotDetected); Methadone Screen, Urine Not Detected (NotDetected); Opiate Screen,Urine Not Detected (NotDetected); Oxycodone Screen, Urine Not Detected (NotDetected); Phencyclidine Screen,Urine Not Detected (NotDetected); Tricyclic Antidepressant,Urine Not Detected (NotDetected); Urn Cannabinoid Scrn Not Detected (NotDetected)
[2020-01-11 22:51] VITALS: BP 115/60; PULSE 134; RESP 16; TEMP 96.7
--- NOTE | 2020-01-12 07:23 | P.MSEPDOC ---
Presenting Problems - Arrival Data Date of Arrival on Unit: 01/11/20 Time of Arrival on Unit: 20:13 Mode of Transport: Ambulatory - Complaint OB-Reason for Admission/Chief Complaint: Pain Comment: patient arrives to triage with complaints of right sided back pain and. nausea since yesterday. Patient reports one episode of vomiting at 14:00. Patient states. its a constant pain of 6/10. Patient denies leaking fluid or blood. Medical History - Information : 2 Para: 1 Term: 1 : 0 Abortions: Spontaneous or Elective: 0 Number of Living Children: 1 - Gestational Age Gestational Age by ARA (wks/days): 29 Weeks and 2 Days Review of Systems - Review of Systems Constitutional: No problems Breast: No problems ENT: No problems Cardiovascular: No problems Respiratory: No problems Gastrointestinal: No problems Genitourinary: No problems Musculoskeletal: No problems Neurological: No problems Skin: No problems Vital Signs - Temperature Temperature: 96.7 F Temperature Source: Temporal Artery Scan - Pulse Right Brachial Pulse Rate: 134 Pulse Assessment Method: Automatic Cuff - Respirations Respiratory Rate: 16 Oxygen Delivery Method: Room Air O2 Sat by Pulse Oximetry: 100 - Blood Pressure Right Arm Blood Pressure: 115/60 Blood Pressure Mean: 78 Blood Pressure Source: Automatic Cuff Medical Screen Scoring (Pre) - Cervical Exam Dilation: Exam Deferred Effacement: Exam Deferred Membranes: Intact - Uterine Contractions Frequency: N/A Duration: N/A Intensity: N/A - Maternal Vital Signs Maternal Temperature: N/A Maternal Blood Pressure: N/A Signs of Preeclampsia: N/A Maternal Respirations: N/A - Maternal Trauma Maternal Trauma: N/A - Assessment - Baby A Baseline FHR: 150 Heart Rate - NICHD Category: Category I (Normal) = 0 NST: Reactive Position: N/A Station: N/A - Total Score - Baby A Total Score - Baby A: 0 - Total Score - Baby B Total Score - Baby B: 0 - Total Score - Baby C Total Score - Baby C: 0 - Level of Risk - Baby A Level of Risk - Baby A: Low (0-5) - Level of Risk - Baby B Level of Risk - Baby B: Low (0-5) - Level of Risk - Baby C Level of Risk - Baby C: Low (0-5) Physician Notification (Pre) - Physician Notified Physician Notified Date: 01/11/20 Physician Notified Time: 21:53 New Order Received: Yes - Notification Comment Comment: RN spoke with Dr. Plascencia. Reported that patient came in with complaints of. right sided back pain since yesterday, nausea, and lightheadedness. Patient is 29 2/7,. G2, P1. Patient denies bleeding, leaking fluid or intercourse during last 24 hours. Patient is feeling movement. Paijulieta reported one episode of vomiting at 2pm, currently. drinking a sprite brought from home. Dr. Plascencia would like a UA, drug screen, and CBC. and then called with results. RN reported labs to Dr. Plascencia. would like urine to be cultured and for patient to follow up tomorrow with Dr. Mejia at the office. Patient updated on plan of care and is in agreement. Disposition - Disposition OB Disposition: Discharge to home Discharge Date: 01/11/20 Discharge Time: 21:53 I agree with the RN Medical Screening Exam: Yes Risk & Benefit of care provided described in d/c instruction: Yes Diagnosis: FALSE LABOR BEFORE 37 COMPLETED WEEKS OF GEST, THIRD TRI (Patient presented to labor and delivery with complaints of pelvic pain. Evaluation here showed no evidence of labor or maternal compromise. Review of the patient's office chart show she has not been in the office over 7 weeks. It appears she has missed several appointments. Patient wasn't maternal- medicine approximately 5 days ago and evaluation there was negative. The only finding on patient's examination is some maternal tachycardia which did not appear to be related to her symptomatology. In fact reviewing her hospital records from the past appear she's had this in 2016. So does not appear to be acute condition. I recommended the patient is discharged home she should call the office first thing tomorrow to be seen this week to get caught up with her care. Dr. Mejia can decide at that time as to whether or not a cardiology all patient's evaluation is indicated.)
== END 2020-01-11 21:53 | disposition home or self-care (01) ==
LOC: FBPOP 20:13
PROVIDERS: ATTEND Obstetrics & Gynecology
DX: O47.03 False labor before 37 completed weeks of gestation, third trimester (principal); Z3A.29 29 weeks gestation of pregnancy
CPT/HCPCS: 59025; 85025; 81001; 80306; 87086; 87077; 87186; G0463; 99213

== ENCOUNTER 2020-03-14 03:32 | Outpatient (CLI) | payer OTHER ==
[2020-03-14 05:08] LABS: Appearance,Urine Clear (Clear); Bacteria,Urine Occasional /hpf; Bilirubin,Urine Negative (Negative); Blood,Urine Negative (Negative); Color,Urine Yellow; Glucose,Urine (UA) Negative (Negative); Ketones,Urine Trace (Negative); Leukocyte Esterase,Urine Large (Negative); Nitrite,Urine Negative (Negative); PH, Urine 6.5 (5.0-8.0); Protein,Urine Trace (Negative); RBC,Urine 2 /hpf (0-5); Specific Gravity,Urine 1.005 (1.001-1.035); Squamous Epithelial Cell,Urine <1 /hpf (0-4); Urobilinogen,Urine <2.0 mg/dL (<2.0); WBC,Urine 45 /hpf (0-5)
[2020-03-14 05:36] VITALS: BP 107/63; PULSE 126; RESP 16; TEMP 98.9
--- NOTE | 2020-03-14 10:24 | P.MSEPDOC ---
Presenting Problems - Arrival Data Date of Arrival on Unit: 03/14/20 Time of Arrival on Unit: 03:32 Mode of Transport: Ambulatory - Complaint OB-Reason for Admission/Chief Complaint: Other Comment: Patient arrives to triage with complaints of lower back pain, dizziness, and. nausea for two days. Patient was treated for a kidney infection two months ago. Medical History - Information : 2 Para: 1 Term: 1 : 0 Abortions: Spontaneous or Elective: 0 Number of Living Children: 1 - Gestational Age Gestational Age by ARA (wks/days): 38 Weeks and 2 Days Review of Systems - Review of Systems Constitutional: No problems Breast: No problems ENT: No problems Cardiovascular: No problems Respiratory: No problems Gastrointestinal: No problems Genitourinary: No problems Musculoskeletal: No problems Neurological: Dizziness Skin: No problems Vital Signs - Temperature Temperature: 98.9 F Temperature Source: Temporal Artery Scan - Pulse Right Brachial Pulse Rate: 126 Pulse Assessment Method: Automatic Cuff - Respirations Respiratory Rate: 16 Oxygen Delivery Method: Room Air O2 Sat by Pulse Oximetry: 98 - Blood Pressure Right Arm Blood Pressure: 107/63 Blood Pressure Mean: 77 Blood Pressure Source: Automatic Cuff Medical Screen Scoring (Pre) - Cervical Exam Dilation: 1-3 cm = 1 Membranes: Intact - Uterine Contractions Frequency: > 5 minutes apart = 1 - Maternal Vital Signs Maternal Temperature: N/A Maternal Blood Pressure: N/A Signs of Preeclampsia: N/A Maternal Respirations: N/A - Maternal Trauma Maternal Trauma: N/A - Assessment - Baby A Baseline FHR: 145 Heart Rate - NICHD Category: Category I (Normal) = 0 NST: Reactive - Total Score - Baby A Total Score - Baby A: 2 - Total Score - Baby B Total Score - Baby B: 2 - Total Score - Baby C Total Score - Baby C: 2 - Level of Risk - Baby A Level of Risk - Baby A: Low (0-5) - Level of Risk - Baby B Level of Risk - Baby B: Low (0-5) - Level of Risk - Baby C Level of Risk - Baby C: Low (0-5) Physician Notification (Pre) - Physician Notified Physician Notified Date: 03/14/20 Physician Notified Time: 05:17 New Order Received: Yes - Notification Comment Comment: RN spoke with Dr. Lipscomb. RN relayed that patient has been dizzy, nauseated, and. has had lower back pain for the past two days. Patient has a history of UTI during. but states she completed antibiotic treatment. Patients vital signs and normal with the exception of tachycardia. Upon previous visit baseline was elevated as well. RN relayed this info to Dr. Lipscomb. Cervical exam performed /2. Reactive NST. RN to collect a U/A with culture. RN reported UA results to Dr. Lipscomb, including trace protein, trace ketones,. Large leukocytes, 45 WBCs, and Occasional bacteria. Dr. Lipscomb states that labs look. suspicious enough for patient to be started on an antibiotic while culture is pending. Patient instructed to call the office this morning, speak with Lin, and get a. prescription sent to the pharmacy of her choice. Patient also instructed to increase the. amount of water she is drinking.Patient has a follow up appointment on March [address] Mejia but was instructed to return to triage if symptoms persisted or worsened. Patient updated on plan of care and she is in agreement. Disposition - Disposition OB Disposition: Discharge to home Discharge Date: 03/14/20 Discharge Time: 05:30 I agree with the RN Medical Screening Exam: Yes Risk & Benefit of care provided described in d/c instruction: Yes Diagnosis: URINARY TRACT INFECTION, SITE NOT SPECIFIED
== END 2020-03-14 05:30 | disposition home or self-care (01) ==
LOC: FBPOP 03:32
PROVIDERS: ATTEND Obstetrics & Gynecology
DX: O99.89 Other specified diseases and conditions complicating pregnancy, childbirth and the puerperium (principal); N39.0 Urinary tract infection, site not specified; Z3A.38 38 weeks gestation of pregnancy
CPT/HCPCS: 59025; 81001; 87086; G0463; 87077; 87186; 99213

== ENCOUNTER 2020-03-15 02:40 | Inpatient (IN) | payer OTHER ==
[2020-03-15] MEDS: LACTATED RINGERS 1,000 ML IV SCH ×8 (04:20→22:57)
[2020-03-15] MEDS ORDERED: CARBOPROST TROMETHAMINE 250 MCG/ML 1 ML AMP IM PRN (05:29)
[2020-03-15] MEDS ORDERED: AMPICILLIN 2,000 MG in SODIUM CHLORIDE 0.9% 100 ML IVPB STA (05:29)
[2020-03-15] MEDS ORDERED: METHYLERGONOVINE 0.2 MG/ML 1 ML AMP IM PRN (05:29)
[2020-03-15] MEDS ORDERED: OXYTOCIN 10 UNIT/ML 1 ML VIAL IM PRN (05:29)
[2020-03-15] MEDS ORDERED: LIDOCAINE 0.5% (PF) 5 MG/ML (50 ML SDV) SQ PRN (05:29)
[2020-03-15] MEDS ORDERED: TERBUTALINE 1 MG/ML VIAL SQ PRN (05:29)
[2020-03-15] MEDS ORDERED: OXYTOCIN 30 UNITS/500 ML NS 30 UNIT in SALINE 1 500ML.BAG IV SCH (05:30)
[2020-03-15 06:05] LABS: Basophils # (A) 0.1 k/uL (0-0.2); Basophils % (A) 0 %; Eosinophils # (A) 0.1 k/uL (0-0.7); Eosinophils % (A) 0 %; HCT 34.3 % (34.0-46.0); HGB 10.9 gm/dL (11.4-16.0); Hypochromasia Slight; Lymphocytes # (A) 1.3 k/uL (1.0-4.8); Lymphocytes % (A) 5 %; MCH 24.4 pg (25.0-35.0); MCHC 31.8 g/dL (31.0-37.0); Mean Platelet Volume 7.2; Microcytosis Slight; Monocytes # (A) 1.7 k/uL (0-1.0); Monocytes % (A) 7 %; Neutrophils % (A) 84 %; Platelet Count 307 k/uL (150-450); RBC 4.47 m/uL (3.80-5.40); RDW 14.6 % (11.5-15.5); WBC 24.9 k/uL (3.8-10.6)
[2020-03-15 06:14] LABS: MCV 76.7 fL (80.0-100.0)
[2020-03-15] MEDS ORDERED: SODIUM CHLORIDE 0.9% 100 ML BAG ONE (06:31)
[2020-03-15] MEDS ORDERED: fentaNYL (PF) 50 MCG/ML 5 ML AMP ONE (06:31)
[2020-03-15] MEDS ORDERED: ROPIVACAINE 5MG/ML 20ML VIAL ONE (06:31)
--- NOTE | 2020-03-15 06:35 | P.HPOB ---
History of Present Illness H&P Date: 03/15/20 Chief Complaint: Nausea vomiting and contractions. This patient is a pleasant 24-year-old 2 para 1 female estimated date of confinement 03/26/2020 estimated gestational age 38-3/7 weeks gestation who presented to labor and delivery with complaints of nausea and vomiting and contractions. Patient apparently was here last evening with similar complaints and thought to have a urinary tract infection however the cultures pending. Patient's initial cervical exam showed her to be the same however after some IV hydration she continued to have contractions and was found to be 5 cm dilated in active labor. care is per Dr. Mejia appears to be complicated by an EIF. Patient has a follow-up and apparently the EIF did resolve. Patient also has a positive group B strep culture this . Review of Systems Genitourinary: Reports Menstruation: Reports amenorrhea Past Medical History Past Medical History: Asthma, Seizure Disorder Additional Past Medical History / Comment(s): migraines, pt had seizure in ER 09/11/16, no seizures since. Obstetric history: Patient had a term vaginal delivery in January 2019. History of Any Multi-Drug Resistant Organisms: None Reported Past Surgical History: No Surgical Hx Reported Past Anesthesia/Blood Transfusion Reactions: No Reported Reaction Past Psychological History: Depression Smoking Status: Never smoker Past Alcohol Use History: None Reported Past Drug Use History: None Reported - Past Family History Mother Additional Family Medical History / Comment(s): Pt states her mother is addicted to heroin and crack. Father Additional Family Medical History / Comment(s): Pt states her father is incarcerated for sexual assault. Medications and Allergies Home Medications Medication Instructions Recorded Confirmed Type Oll-Cluy-Vmrxc Acid 1 cap PO DAILY 10/01/18 03/15/20 History [-U Capsule (formulary)] Albuterol Sulfate [Proair Hfa] 1 - 2 puff INHALATION RT-QID PRN 10/10/1803/15 History Allergies Allergy/AdvReac Type Severity Reaction Status Date / Time No Known Allergies Allergy Verified 03/15/20 02:58 Exam Vital Signs Temp Pulse Resp BP Pulse Ox 03/15/20 03:00 98.6 F 123 H 16 105/59 97 Intake and Output 03/14/20 03/14/20 03/15/20 14:59 22:59 06:59 Other: # Voids 4 Weight 68.039 kg - OBG Physical Exam Abdomen: bowel sounds normal, no diffuse tenderness, no bruit present, no guarding noted, no hepatomegaly, no splenomegaly, no mass Vulva: both: normal Vagina: normal moisture, no discharge Cervix: Cervix per the RN is 5 cm dilated Uterus: enlarged Results blood work shows she is a positive, rubella immune, RPR is nonreactive, hepatitis B is negative, toxoplasmosis IgG was positive consistent with a past infection, group B strep was positive., Ultrasounds as above. Result Diagrams: 03/15/20 05:50 Abnormal Lab Results - Last 24 Hours (Table) 03/15/20 Range/Units 05:50 WBC 24.9 H (3.8-10.6) k/uL Hgb 10.9 L (11.4-16.0) gm/dL MCV 76.7 L D (80.0-100.0) fL MCH 24.4 L (25.0-35.0) pg Neutrophils # 21.0 H (1.3-7.7) k/uL Monocytes # 1.7 H (0-1.0) k/uL Assessment and Plan Assessment: This is a pleasant 24-year-old 2 para 1 female 38-3/7 weeks gestation admitted to labor and delivery for complaints of contractions and nausea and vomiting found to be in early labor. Patient does have a positive group B strep culture and her admission CBC shows a white count of 24.9. I initially gave her a dose of ampicillin but 1 her white blood cell count returned I add Ancef. Incidentally she was here 24 hours ago with questionable urinary tract infection does have some back pain although this does not at this point appear to be pyelonephritis. heart tones are category 1. Patient requesting epidural. I am going to continue IV antibiotics, pain control, and after 2 hours of antibiotics proceed with artificial rupture membranes and anticipate vaginal delivery. We did alert the special care staff due to the positive strep and elevated white blood cell count. (1) 38 weeks gestation of Current Visit: Yes Status: Acute Code(s): Z3A.38 - 38 WEEKS GESTATION OF SNOMED Code(s): 73439785 (2) Normal labor Current Visit: Yes Status: Acute Code(s): O80 - ENCOUNTER FOR FULL-TERM UNCOMPLICATED DELIVERY; Z37.9 - OUTCOME OF DELIVERY, UNSPECIFIED SNOMED Code(s): 41747309 (3) Group B streptococcal carriage complicating Current Visit: Yes Status: Acute Code(s): O99.820 - STREPTOCOCCUS B CARRIER STATE COMPLICATING SNOMED Code(s): 949007793061553 (4) Leukocytosis Current Visit: Yes Status: Acute Code(s): D72.829 - ELEVATED WHITE BLOOD CELL COUNT, UNSPECIFIED SNOMED Code(s): 341819915
--- NOTE | 2020-03-15 06:42 | P.MSEPDOC ---
Presenting Problems - Arrival Data Date of Arrival on Unit: 03/15/20 Time of Arrival on Unit: 02:37 Mode of Transport: Wheelchair - Complaint OB-Reason for Admission/Chief Complaint: Possible Onset of Labor Medical History - Information : 2 Para: 1 Number of Living Children: 1 - Gestational Age Gestational Age by ARA (wks/days): 38 Weeks and 3 Days Review of Systems - Review of Systems Constitutional: No problems Breast: No problems ENT: No problems Cardiovascular: No problems Respiratory: No problems Gastrointestinal: No problems Genitourinary: No problems Musculoskeletal: No problems Neurological: No problems Skin: No problems Vital Signs - Temperature Temperature: 98.6 F Temperature Source: Oral - Pulse Right Sitting Brachial Pulse Rate: 123 Pulse Assessment Method: Telemetry - Respirations Respiratory Rate: 16 Oxygen Delivery Method: Room Air O2 Sat by Pulse Oximetry: 97 - Blood Pressure Right Arm Sitting Blood Pressure: 105/59 Blood Pressure Mean: 74 Blood Pressure Source: Automatic Cuff Medical Screen Scoring (Pre) - Cervical Exam Dilation: 4-7 cm = 2 Effacement: More than 50% = 2 Membranes: Intact - Uterine Contractions Frequency: > 5 minutes apart = 1 Duration: > 40 seconds = 2 Intensity: Contraction palpated strong = 1 - Maternal Vital Signs Maternal Temperature: N/A Maternal Blood Pressure: N/A Signs of Preeclampsia: N/A Maternal Respirations: N/A - Maternal Trauma Maternal Trauma: N/A - Assessment - Baby A Baseline FHR: 140 Heart Rate - NICHD Category: Category I (Normal) = 0 NST: Reactive Position: N/A Station: N/A - Total Score - Baby A Total Score - Baby A: 8 - Total Score - Baby B Total Score - Baby B: 8 - Total Score - Baby C Total Score - Baby C: 8 - Level of Risk - Baby A Level of Risk - Baby A: Medium (6-9) - Level of Risk - Baby B Level of Risk - Baby B: Medium (6-9) - Level of Risk - Baby C Level of Risk - Baby C: Medium (6-9) Physician Notification (Pre) - Physician Notified Physician Notified Date: 03/15/20 Physician Notified Time: 05:25 New Order Received: Yes Disposition - Disposition OB Disposition: Admit, LDRP Suite I agree with the RN Medical Screening Exam: Yes Risk & Benefit of care provided described in d/c instruction: Yes Diagnosis: ENCOUNTER FOR FULL-TERM UNCOMPLICATED DELIVERY
[2020-03-15] MEDS ORDERED: ALBUTEROL HFA INHALER INHALATION PRN (06:49)
[2020-03-15] MEDS ORDERED: NALOXONE 0.4 MG/ML 1 ML VIAL IV PRN (06:55)
--- NOTE | 2020-03-15 07:52 | P.PROBDLV ---
Vaginal Delivery Note - . Vaginal Delivery Note: his patient is a pleasant 24-year-old 2 para 1 female estimated date of confinement 03/26/2020 estimated gestational age 38-3/7 weeks gestation who presented to labor and delivery with complaints of nausea and vomiting and contractions. Patient apparently was here last evening with similar complaints and thought to have a urinary tract infection however the cultures pending. Patient's initial cervical exam showed her to be the same however after some IV hydration she continued to have contractions and was found to be 5 cm dilated in active labor. heart tones 140 with moderate variability and reactive. She was admitted to a room and given an epidural for pain control. Her water spontaneously broke at 7:20 AM. Her cervix was completely dilated at 7:29 AM. She pushed, delivered a viable male infant over intact perineum under epidural anesthesia at 7:35 AM. Head delivered OA, nuchal cord 1 easily reduced, anterior shoulder delivered gentle downward guidance. Posterior shoulder and rest of body. Nose and mouth bulb suctioned, cord clamped and cut, placed on mother's abdomen. Apgars 9, 9, weight 7 lbs. 15 oz. Placenta delivered spontaneously, intact with three-vessel cord at 7:38 AM. Vagina, cervix, perineum inspected. First-degree midline laceration was repaired with 3-0 Vicryl. Estimated blood loss 100 mL. Mother and baby in stable condition.
[2020-03-15] MEDS ORDERED: diphenhydrAMINE 50 MG/ML 1 ML VIAL IVP PRN ×2 (08:54)
[2020-03-15] MEDS ORDERED: HYDROCORTISONE 2.5% RECTAL CREAM 30 GM TUBE RECTAL PRN (08:54)
[2020-03-15] MEDS ORDERED: ACETAMINOPHEN TAB 325 MG TAB PO PRN (08:54)
[2020-03-15] MEDS ORDERED: WITCH HAZEL 1 EACH MED..PAD TOPICAL PRN (08:54)
[2020-03-15] MEDS ORDERED: BENZOCAINE/MENTHOL SPRAY 1 GM/SPRAY AEROSOL TOPICAL PRN (08:54)
[2020-03-15] MEDS ORDERED: SIMETHICONE 80 MG CHEWABLE PO PRN (08:54)
[2020-03-15] MEDS ORDERED: diphenhydrAMINE 25 MG CAP PO PRN (08:54)
[2020-03-15] MEDS ORDERED: LANOLIN CREAM 5 GM TUBE TOPICAL PRN (08:54)
[2020-03-15] MEDS ORDERED: diphenhydrAMINE 50 MG CAP PO PRN (08:54)
[2020-03-15] MEDS ORDERED: ZOLPIDEM 5 MG TAB PO PRN (08:54)
[2020-03-15] MEDS ORDERED: OXYTOCIN 20 UNITS/1000 ML NS 1,000 ML IV SCH (09:00)
[2020-03-15] MEDS ORDERED: AMPICILLIN 1,000 MG in SODIUM CHLORIDE 0.9% 50 ML IVPB SCH (09:30)
[2020-03-15 10:18] VITALS: RESP 16
[2020-03-15] MEDS: SENNOSIDES-DOCUSATE SODIUM 1 EACH TAB PO SCH (19:41)
[2020-03-15] MEDS: IBUPROFEN 600 MG TAB PO PRN (19:41)
[2020-03-16] MEDS: LACTATED RINGERS 1,000 ML IV SCH (05:10)
[2020-03-16 05:57] LABS: Basophils % (A) 0 %; Eosinophils % (A) 0 %; HCT 31.4 % (34.0-46.0); HGB 9.9 gm/dL (11.4-16.0); Hypochromasia Slight; Lymphocytes # (A) 1.5 k/uL (1.0-4.8); Lymphocytes % (A) 11 %; MCH 24.3 pg (25.0-35.0); MCHC 31.6 g/dL (31.0-37.0); Mean Platelet Volume 7.2; Monocytes % (A) 7 %; Neutrophils # (A) 10.8 k/uL (1.3-7.7); Neutrophils % (A) 79 %; Platelet Count 271 k/uL (150-450); Poikilocytosis Slight; RBC 4.08 m/uL (3.80-5.40); RDW 14.3 % (11.5-15.5); WBC 13.7 k/uL (3.8-10.6)
--- NOTE | 2020-03-16 09:40 | P.PNOBGVD ---
Subjective - Subjective Principal diagnosis: Status post normal vaginal delivery day #1 Interval history: Patient seen and examined. Denies nausea, vomiting, chest pain, shortness of breath or any calf pain. She is voiding and ambulating without difficulty. Her white blood cell count did drop from 24 to 13. I will discontinue the IV antibiotics and start oral Keflex. Patient reports: Reports appetite normal, Reports voiding normally, Reports pain well controlled, Reports ambulating normally : doing well Objective - Latest Vital Signs Latest vital signs: Vital Signs Temp Pulse Resp BP Pulse Ox 03/16/20 00:00 97.3 F L 78 16 85/55 03/15/20 20:00 98.5 F 98 16 97/58 100 03/15/20 15:51 97.6 F 80 16 96/63 03/15/20 11:48 98.2 F 84 16 123/76 03/15/20 09:42 97.7 F 82 16 98/53 Intake and Output 03/15/20 03/16/20 03/16/20 22:59 06:59 14:59 Other: # Voids 3 - Exam Lungs: bilateral: normal Chest: Normal S1, Normal S2 Extremities: Present: normal Abdomen: Present: normal appearance, soft Uterus: Present: normal, firm - Labs Labs: Abnormal Lab Results - Last 24 Hours (Table) 03/16/20 Range/Units 05:18 WBC 13.7 H (3.8-10.6) k/uL Hgb 9.9 L (11.4-16.0) gm/dL Hct 31.4 L (34.0-46.0) % MCV 77.0 L (80.0-100.0) fL MCH 24.3 L (25.0-35.0) pg Neutrophils # 10.8 H (1.3-7.7) k/uL Assessment and Plan (1) Status post normal vaginal delivery Current Visit: No Status: Acute Code(s): ZKY8592 - SNOMED Code(s): 442046266 (2) UTI (urinary tract infection) Current Visit: Yes Status: Acute Code(s): N39.0 - URINARY TRACT INFECTION, SITE NOT SPECIFIED SNOMED Code(s): 25118463 Plan: 1. DC IV and DC IV antibiotics 2. Oral Keflex 3. Monitor closely
[2020-03-16] MEDS: CEPHALEXIN 500 MG CAP PO SCH ×3 (12:18→23:31)
[2020-03-16] MEDS: SENNOSIDES-DOCUSATE SODIUM 1 EACH TAB PO SCH ×2 (12:18→19:59)
[2020-03-16] MEDS: IBUPROFEN 600 MG TAB PO PRN (20:00)
--- NOTE | 2020-03-17 07:58 | P.DS ---
Providers Date of admission: 03/15/20 05:40 Expected date of discharge: 03/17/20 Attending physician: Priyanka Mejia Primary care physician: Stated None - Discharge Diagnosis(es) (1) Status post normal vaginal delivery Current Visit: No Status: Acute (2) UTI (urinary tract infection) Current Visit: Yes Status: Acute Hospital Course: Patient presented in labor and with a UTI. She underwent normal vaginal delivery. day Her IV antibiotics going is when she came in her white count was 24. The urine culture came back with E. coli. It is sensitive to cephalosporins. I changed her IV antibiotics to oral antibiotics when her white count went from 24 down to 13. She will continue on his oral antibiotics at home. She denies nausea, vomiting, chest pain, shortness of breath or any calf pain. She'll be discharged home and follow-up with me in 6 weeks. Patient Condition at Discharge: Stable Plan - Discharge Summary New Discharge Prescriptions: New Cephalexin [Keflex] 500 mg PO QID #24 cap Ibuprofen [Motrin] 600 mg PO Q6HR PRN #30 tab PRN Reason: Mild Pain Or Fever >= 100.5 No Action Vft-Gsoz-Ouefv Acid [-U Capsule (formulary)] 1 cap PO DAILY Albuterol Sulfate [Proair Hfa] 1 - 2 puff INHALATION RT-QID PRN PRN Reason: Shortness Of Breath Discharge Medication List [id number]-[id number] Acid [-U Capsule (formulary)] 1 cap PO DAILY 10/01/18 [History] Albuterol Sulfate [Proair Hfa] 1 - 2 puff INHALATION RT-QID PRN 10/10/18 [History] Cephalexin [Keflex] 500 mg PO QID #24 cap 03/17/20 [Rx] Ibuprofen [Motrin] 600 mg PO Q6HR PRN #30 tab 03/17/20 [Rx] Follow up Appointment(s)/Referral(s): Priyanka Mejia DO [Doctor of Osteopathic Medicine] - 6 Weeks Discharge Disposition: HOME SELF-CARE
[2020-03-17] MEDS: SENNOSIDES-DOCUSATE SODIUM 1 EACH TAB PO SCH (08:16)
[2020-03-17] MEDS: CEPHALEXIN 500 MG CAP PO SCH ×2 (08:16→12:18)
[2020-03-17 13:08] VITALS: BP 102/63; PULSE 87; TEMP 97.6
== END 2020-03-17 12:30 | disposition home or self-care (01) | DRG 806 ==
LOC: FBPOP 02:40 → 4FBP 05:40
PROVIDERS: ADMIT Obstetrics & Gynecology; ATTEND Obstetrics & Gynecology
PROC: 10E0XZZ Delivery of Products of Conception, External Approach (ICD-10-PCS; principal; 2020-03-15)
PROC: 0HQ9XZZ Repair Perineum Skin, External Approach (ICD-10-PCS; 2020-03-15)
PROC: 3E0R3BZ Introduction of Anesthetic Agent into Spinal Canal, Percutaneous Approach (ICD-10-PCS; 2020-03-15)
DX: O99.824 Streptococcus B carrier state complicating childbirth (principal); N39.0 Urinary tract infection, site not specified; Z37.0 Single live birth; G40.909 Epilepsy, unspecified, not intractable, without status epilepticus; O69.81X0 Labor and delivery complicated by cord around neck, without compression, not applicable or unspecified; O70.0 First degree perineal laceration during delivery; O75.3 Other infection during labor; J45.909 Unspecified asthma, uncomplicated; O99.52 Diseases of the respiratory system complicating childbirth; O99.354 Diseases of the nervous system complicating childbirth; G43.909 Migraine, unspecified, not intractable, without status migrainosus; Z3A.38 38 weeks gestation of pregnancy; Z79.818 Long term (current) use of other agents affecting estrogen receptors and estrogen levels; Z86.59 Personal history of other mental and behavioral disorders; Z81.3 Family history of other psychoactive substance abuse and dependence
CPT/HCPCS: 59025; 81001; 85025; 86850; 86900; 86901; 87077; 87086; 87186; 88307; 96365; 99213

== ENCOUNTER 2021-04-27 13:54 | Emergency (ER) | payer OTHER ==
[2021-04-27 14:17] VITALS: BP 114/81; PULSE 85; RESP 18; TEMP 97.7
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
--- NOTE | 2021-04-27 14:54 | XR ---
EXAMINATION TYPE: XR hand complete RT DATE OF EXAM: 04/27/2021 COMPARISON: None HISTORY: Pain laceration between second and third metatarsals. TECHNIQUE: 3 view right hand FINDINGS: There is a transverse fractures of the mid diaphysis second metacarpal. Distal fracture fra gment has its proximal portion anteriorly displaced from the proximal second metacarpal. No additiona l fractures are evident. Bone fragments appear to be present at the fracture site. Radiopaque foreign bodies are not otherwise identified. IMPRESSION: 1. Transverse fracture with displacement of the distal fracture fragment anteriorly within the secon d mid diaphyseal metacarpal.
[2021-04-27] MEDS ORDERED: ACET/COD 300 MG/30 MG STARTER PACK 6 TAB BTL PO STA (14:55)
== END 2021-04-27 15:08 | disposition home or self-care (01) ==
LOC: EC 13:54
DX: S62.310A Displaced fracture of base of second metacarpal bone, right hand, initial encounter for closed fracture (principal); S62.390A Other fracture of second metacarpal bone, right hand, initial encounter for closed fracture; J45.909 Unspecified asthma, uncomplicated; W23.0XXA Caught, crushed, jammed, or pinched between moving objects, initial encounter; Y92.89 Other specified places as the place of occurrence of the external cause; Y93.89 Activity, other specified
CPT/HCPCS: 29125; 99283

== ENCOUNTER 2021-10-06 08:13 | Emergency (ER) | payer OTHER ==
[2021-10-06 08:22] VITALS: RESP 18; TEMP 97.6
[2021-10-06] MEDS ORDERED: IPRATROPIUM-ALBUTEROL 3 ML NEB INHALATION STA ×2 (08:26→08:33)
[2021-10-06] MEDS ORDERED: ALBUTEROL HFA INHALER INHALATION STA (08:54)
--- NOTE | 2021-10-06 09:06 | ED ---
SOB HPI - General Chief Complaint: Shortness of Breath Stated Complaint: MIQUEL Time Seen by Provider: 10/06/21 08:25 Source: patient, RN notes reviewed Mode of arrival: ambulatory Limitations: no limitations - History of Present Illness Initial Comments: This is a 26-year-old female history of asthma states she had the onset shortness breath last evening typical of her asthma attacks. No fevers chills nausea vomiting sweats slight cough no other complaints or modifying factors she does states she did run out of her albuterol inhaler however. MD Complaint: shortness of breath - Related Data Home Medications Medication Instructions Recorded Confirmed Xxb-Avhi-Cuyvn Acid 1 cap PO DAILY 10/01/18 03/15/20 [-U Capsule (formulary)] Albuterol Sulfate [Proair Hfa] 1 - 2 puff INHALATION RT-QID PRN 10/10/18 03/15/20 Previous Rx's Medication Instructions Recorded Cephalexin [Keflex] 500 mg PO QID #24 cap 03/17/20 Ibuprofen [Motrin] 600 mg PO Q6HR PRN #30 tab 03/17/20 Cephalexin [Keflex] 500 mg PO Q6HR #28 cap 04/27/21 Albuterol Inhaler [Ventolin Hfa 2 puff INHALATION RT-QID #8 gm 10/06/21 Inhaler] Allergies Allergy/AdvReac Type Severity Reaction Status Date / Time No Known Allergies Allergy Verified 10/06/21 08:22 Review of Systems ROS Statement: Those systems with pertinent positive or pertinent negative responses have been documented in the HPI. ROS Other: All systems not noted in ROS Statement are negative. Past Medical History Past Medical History: Asthma, Seizure Disorder Additional Past Medical History / Comment(s): migraines, pt had seizure in ER 09/11/16, no seizures since. Obstetric history: Patient had a term vaginal delivery in January 2019. History of Any Multi-Drug Resistant Organisms: None Reported Past Surgical History: No Surgical Hx Reported Past Anesthesia/Blood Transfusion Reactions: No Reported Reaction Past Psychological History: Depression Smoking Status: Never smoker Past Alcohol Use History: Occasional Past Drug Use History: None Reported - Past Family History Mother Additional Family Medical History / Comment(s): Pt states her mother is addicted to heroin and crack. Father Family Medical History: No Reported History Additional Family Medical History / Comment(s): Pt states her father is incarcerated for sexual assault. General Exam - General Exam Comments Initial Comments: This is a well-developed well-nourished awake alert oriented 3 female Limitations: no limitations General appearance: alert, in no apparent distress Head exam: Present: atraumatic, normocephalic, normal inspection Eye exam: Present: normal appearance, PERRL, EOMI. Absent: scleral icterus, conjunctival injection, periorbital swelling ENT exam: Present: normal exam, mucous membranes moist Neck exam: Present: normal inspection. Absent: tenderness, meningismus, lymphadenopathy Respiratory exam: Present: wheezes, decreased breath sounds. Absent: respiratory distress, rales, rhonchi, stridor Cardiovascular Exam: Present: regular rate, normal rhythm, normal heart sounds. Absent: systolic murmur, diastolic murmur, rubs, gallop, clicks GI/Abdominal exam: Present: soft, normal bowel sounds. Absent: distended, tenderness, guarding, rebound, rigid Extremities exam: Present: normal inspection, full ROM, normal capillary refill. Absent: tenderness, pedal edema, joint swelling, calf tenderness Back exam: Present: normal inspection Neurological exam: Present: alert, oriented X3, CN II-XII intact Psychiatric exam: Present: normal affect, normal mood Skin exam: Present: warm, dry, intact, normal color. Absent: rash Course Vital Signs 10/06/21 08:19 Temperature 97.6 F Pulse Rate 95 Respiratory 18 Rate Blood Pressure 101/64 O2 Sat by Pulse 95 Oximetry Medical Decision Making - Medical Decision Making Reevaluation patient 5 she has clear lung sounds and good aeration be discharged with a new prescription for albuterol Disposition Clinical Impression: Asthma with acute exacerbation Disposition: HOME SELF-CARE Condition: Good Instructions (If sedation given, give patient instructions): Asthma (ED) Prescriptions: Albuterol Inhaler [Ventolin Hfa Inhaler] 2 puff INHALATION RT-QID #8 gm Is patient prescribed a controlled substance at d/c from ED?: No Referrals: None,Stated [Primary Care Provider] - 1-2 days
[2021-10-06 10:43] VITALS: BP 144/98; PULSE 64
== END 2021-10-06 10:40 | disposition home or self-care (01) ==
LOC: EC 08:13
DX: R06.02 Shortness of breath (principal); J45.901 Unspecified asthma with (acute) exacerbation
CPT/HCPCS: 94640; 99284

== ENCOUNTER 2022-08-18 21:11 | Emergency (ER) | payer OTHER ==
[2022-08-18 21:42] VITALS: RESP 16
--- NOTE | 2022-08-18 22:55 | ED ---
General Adult HPI - General Chief complaint: Abdominal Pain Stated complaint: 8 weeks preg,fell down stairs,ABD pain Time Seen by Provider: 08/18/22 22:19 Source: patient Mode of arrival: ambulatory Limitations: no limitations - History of Present Illness Initial comments: This is a 27 year old female who presents to the emergency department for evaluation of mid abdominal cramping, onset this afternoon. Patient states she slipped and fell on wooden exterior steps today. Patient is approximately eight weeks . LMP 06/20/22. . Has not yet seen OB this prengancy. Does state she notices pinkish red blood on tissue when she wipes. No other injuries or concerns at this time. Denies fever, chills, headache, dizziness, chest pain, nausea, vomiting, diarrhea, or dysuria. - Related Data Home Medications Medication Instructions Recorded Confirmed Myd-Wocu-Itymu Acid 1 cap PO DAILY 10/01/18 03/15/20 [-U Capsule (formulary)] Albuterol Sulfate [Proair Hfa] 1 - 2 puff INHALATION RT-QID PRN 10/10/18 03/15/20 Previous Rx's Medication Instructions Recorded Cephalexin [Keflex] 500 mg PO QID #24 cap 03/17/20 Ibuprofen [Motrin] 600 mg PO Q6HR PRN #30 tab 03/17/20 Cephalexin [Keflex] 500 mg PO Q6HR #28 cap 04/27/21 Albuterol Inhaler [Ventolin Hfa 2 puff INHALATION RT-QID #8 gm 10/06/21 Inhaler] Allergies Allergy/AdvReac Type Severity Reaction Status Date / Time No Known Allergies Allergy Verified 08/18/22 21:42 Review of Systems ROS Statement: Those systems with pertinent positive or pertinent negative responses have been documented in the HPI. ROS Other: All systems not noted in ROS Statement are negative. Past Medical History Past Medical History: Asthma, Seizure Disorder Additional Past Medical History / Comment(s): migraines, pt had seizure in ER 09/11/16, no seizures since. Obstetric history: Patient had a term vaginal delivery in January 2019. History of Any Multi-Drug Resistant Organisms: None Reported Past Surgical History: No Surgical Hx Reported Past Anesthesia/Blood Transfusion Reactions: No Reported Reaction Past Psychological History: Depression Smoking Status: Never smoker Past Alcohol Use History: Occasional Past Drug Use History: None Reported - Past Family History Mother Additional Family Medical History / Comment(s): Pt states her mother is addicted to heroin and crack. Father Family Medical History: No Reported History Additional Family Medical History / Comment(s): Pt states her father is incarcerated for sexual assault. General Exam Limitations: no limitations General appearance: alert, in no apparent distress Neck exam: Present: normal inspection, full ROM. Absent: tenderness, meningismus, lymphadenopathy Respiratory exam: Present: normal lung sounds bilaterally. Absent: respiratory distress, wheezes, rales, rhonchi, stridor Cardiovascular Exam: Present: regular rate, normal rhythm, normal heart sounds. Absent: systolic murmur, diastolic murmur, rubs, gallop, clicks GI/Abdominal exam: Present: soft, normal bowel sounds. Absent: distended, tenderness, guarding, rebound, rigid External exam: Present: normal external exam Speculum exam: Present: normal speculum exam. Absent: vaginal bleeding Neurological exam: Present: alert, oriented X3, CN II-XII intact, normal gait Psychiatric exam: Present: normal affect, normal mood Skin exam: Present: warm, dry, intact, normal color. Absent: rash Course Vital Signs 08/18/22 08/18/22 08/19/22 21:39 22:19 00:46 Temperature 98.3 F 97.8 F 98.2 F Pulse Rate 88 92 70 Respiratory 16 16 16 Rate Blood Pressure 116/59 126/84 121/80 O2 Sat by Pulse 97 100 100 Oximetry - Reevaluation(s) Reevaluation #1: 08/19/22 00:00 Findings and results were discussed at length with patient. Provided with lab order for repeat bhCG. Explained the need to track this measurement. Patient verbalizes understanding. Medical Decision Making - Medical Decision Making This is a 27-year-old female who presents to the emergency department for evaluation of lower abdominal cramping status post slip and fall on steps. Upon exam, patient is well-appearing and in no acute distress. Abdomen is soft with minimal tenderness upon palpation. There are no abrasions or contusions.. Patient reports positive test at home and presumes that she is 8 weeks based on LMP [id number]. Ultrasound was obtained showing an empty uterus. Laboratory studies reveal hCG 142. Speculum exam unremarkable. There is no vaginal bleeding or signs of external trauma. Given physical exam findings and laboratory studies, no further imaging was merited. Patient was given a lab slip and instructed to have repeat bhCG in 48 hours. Encouraged to follow up with her OB- encouraged to call in the morning. Patient was instructed to take Tylenol or Motrin if needed for discomfort. Return parameters were discussed in detail. Patient verbalizes understanding and agrees with this plan. Attending: lenora. - Lab Data Result diagrams: 08/18/22 22:47 08/18/22 22:47 Lab Results 08/18/22 08/18/22 08/19/22 Range/Units 22:47 22:47 00:05 WBC 8.3 (3.8-10.6) k/uL RBC 4.42 (3.80-5.40) m/uL Hgb 13.4 (11.4-16.0) gm/dL Hct 38.0 (34.0-46.0) % MCV 85.9 (80.0-100.0) fL MCH 30.4 (25.0-35.0) pg MCHC 35.3 (31.0-37.0) g/dL RDW 13.1 (11.5-15.5) % Plt Count 236 (150-450) k/uL MPV 7.6 Neutrophils % 66 % Lymphocytes % 23 % Monocytes % 5 % Eosinophils % 4 % Basophils % 1 % Neutrophils # 5.4 (1.3-7.7) k/uL Lymphocytes # 1.9 (1.0-4.8) k/uL Monocytes # 0.4 (0-1.0) k/uL Eosinophils # 0.3 (0-0.7) k/uL Basophils # 0.0 (0-0.2) k/uL Sodium 138 (137-145) mmol/L Potassium 3.9 (3.5-5.1) mmol/L Chloride 106 (98-107) mmol/L Carbon Dioxide 26 (22-30) mmol/L Anion Gap 6 mmol/L BUN 12 (7-17) mg/dL Creatinine 0.53 (0.52-1.04) mg/dL Est GFR (CKD-EPI)AfAm >90 (>60 ml/min/1.73 sqM) Est GFR (CKD-EPI)NonAf >90 (>60 ml/min/1.73 sqM) Glucose 104 H (74-99) mg/dL Calcium 9.1 (8.4-10.2) mg/dL Total Bilirubin 0.2 (0.2-1.3) mg/dL AST 24 (14-36) U/L ALT 19 (4-34) U/L Alkaline Phosphatase 67 (38-126) U/L Total Protein 6.8 (6.3-8.2) g/dL Albumin 4.2 (3.5-5.0) g/dL HCG, Quant 142.7 mIU/mL Urine Color Yellow Urine Appearance Turbid H (Clear) Urine pH 7.0 (5.0-8.0) Ur Specific [place] 1.026 (1.001-1.035) Urine Protein Negative (Negative) Urine Glucose (UA) Negative (Negative) Urine Ketones Trace H (Negative) Urine Blood Negative (Negative) Urine Nitrite Negative (Negative) Urine Bilirubin Negative (Negative) Urine Urobilinogen 2.0 (<2.0) mg/dL Ur Leukocyte Esterase Negative (Negative) Urine RBC 2 (0-5) /hpf Urine WBC 1 (0-5) /hpf Ur Squamous Epith Cells <1 (0-4) /hpf Amorphous Sediment Rare H (None) /hpf Urine Mucus Occasional H (None) /hpf - Radiology Data Radiology results: report reviewed, image reviewed ultrasound was obtained. Report was reviewed in its entirety. Impression per Dr. Arteaga is no IUP seen at this time. Simple left ovarian cyst. Uteru s. No adnexal solid mass. Disposition Clinical Impression: Abdominal cramping Disposition: HOME SELF-CARE Condition: Stable Instructions (If sedation given, give patient instructions): Acute Abdominal Pain (ED) Additional Instructions: Have repeat blood work drawn in 48 hours. Call your OB in the morning to schedule a follow up appointment. Return to the emergency department with any new, worsening, or concerning symptoms. Is patient prescribed a controlled substance at d/c from ED?: No Referrals: None,Stated [Primary Care Provider] - 1-2 days Priyanka Mejia DO [Doctor of Osteopathic Medicine] - 1-2 days Time of Disposition: 00:18
[2022-08-18 23:06] LABS: Basophils % (A) 1 %; Eosinophils # (A) 0.3 k/uL (0-0.7); Eosinophils % (A) 4 %; HGB 13.4 gm/dL (11.4-16.0); Lymphocytes # (A) 1.9 k/uL (1.0-4.8); Lymphocytes % (A) 23 %; MCH 30.4 pg (25.0-35.0); MCHC 35.3 g/dL (31.0-37.0); MCV 85.9 fL (80.0-100.0); Mean Platelet Volume 7.6; Monocytes # (A) 0.4 k/uL (0-1.0); Monocytes % (A) 5 %; Neutrophils # (A) 5.4 k/uL (1.3-7.7); Neutrophils % (A) 66 %; Platelet Count 236 k/uL (150-450); RBC 4.42 m/uL (3.80-5.40); RDW 13.1 % (11.5-15.5); WBC 8.3 k/uL (3.8-10.6)
[2022-08-18 23:18] LABS: ALT 19 U/L (4-34); AST 24 U/L (14-36); African American GFR (CKD) >90 (>60 ml/min/1.73 sqM); Albumin 4.2 g/dL (3.5-5.0); Alkaline Phosphatase 67 U/L (38-126); Anion Gap 6 mmol/L; Blood Urea Nitrogen 12 mg/dL (7-17); Calcium 9.1 mg/dL (8.4-10.2); Carbon Dioxide 26 mmol/L (22-30); Chloride 106 mmol/L (98-107); Glucose 104 mg/dL (74-99); Non-African American GFR(CKD) >90 (>60 ml/min/1.73 sqM); Potassium 3.9 mmol/L (3.5-5.1); Sodium 138 mmol/L (137-145); Total Bilirubin 0.2 mg/dL (0.2-1.3); Total Protein 6.8 g/dL (6.3-8.2)
--- NOTE | 2022-08-18 23:20 | US ---
EXAMINATION TYPE: Transabdominal DATE OF EXAM: 08/18/2022 11:07 PM COMPARISON: NONE CLINICAL HISTORY: spotting s/p fall. Pelvic cramping and spotting following fall down stairs today EXAM PERFORMED: Transabdominal (TA) EXAM MEASUREMENTS: GESTATIONAL AGE / DATING Physician Established: Not yet established Dates by LMP: LMP unknown Dates by First Scan: No previous this is first scan Dates by Current Scan for: No IUP seen at this time MATERNAL ANATOMY Uterus: 8.3 x 5.0 x 5.9cm Right Ovary: 2.7 x 1.6 x 2.2cm Left Ovary: 4.6 x 3.6 x 4.3cm Post CDS / Adnexa: small amount of free fluid in posterior cul de sac Presence of free fluid: yes Presence of corpus luteal cyst: left ovary - 3.0 x 2.7 x 3.3cm Presence of subchorionic bleed: no GESTATION / SURVEY IUP: No IUP seen at this time Date of LMP: Unknown Beta HcG (if available): Not available at time of exam IMPRESSION: Simple left ovarian cyst. Empty uterus. No adnexal solid mass..
[2022-08-18 23:31] LABS: HCG,Quantitative Serum 142.7 mIU/mL
[2022-08-19 00:31] LABS: Amorphous Sediment,Urine Rare /hpf; Appearance,Urine Turbid (Clear); Bilirubin,Urine Negative (Negative); Blood,Urine Negative (Negative); Color,Urine Yellow; Glucose,Urine (UA) Negative (Negative); Ketones,Urine Trace (Negative); Leukocyte Esterase,Urine Negative (Negative); Mucus,Urine Occasional /hpf; Nitrite,Urine Negative (Negative); Protein,Urine Negative (Negative); RBC,Urine 2 /hpf (0-5); Specific Gravity,Urine 1.026 (1.001-1.035); Squamous Epithelial Cell,Urine <1 /hpf (0-4); WBC,Urine 1 /hpf (0-5)
[2022-08-19 00:47] VITALS: BP 121/80; PULSE 70; TEMP 98.2
== END 2022-08-19 00:49 | disposition home or self-care (01) ==
LOC: EC 21:11
DX: O99.611 Diseases of the digestive system complicating pregnancy, first trimester (principal); J45.909 Unspecified asthma, uncomplicated; F32.A Depression, unspecified; Z79.51 Long term (current) use of inhaled steroids; Z79.899 Other long term (current) drug therapy; Z3A.08 8 weeks gestation of pregnancy
CPT/HCPCS: 36415; 76801; 80053; 81001; 84702; 85025; 99285

== ENCOUNTER → 2022-08-22 | Outpatient (CLI) | payer OTHER | END | disposition home or self-care (01) | LOC: LABWHC1 12:26 | PROVIDERS: ATTEND Nurse Practitioner Family | DX: Z00.00 Encounter for general adult medical examination without abnormal findings (principal); O99.611 Diseases of the digestive system complicating pregnancy, first trimester; Z3A.00 Weeks of gestation of pregnancy not specified | CPT/HCPCS: 36415; 84702 ==

== ENCOUNTER 2022-08-29 17:54 | Emergency (ER) | payer OTHER ==
[2022-08-29 18:10] VITALS: RESP 16
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
[2022-08-29 18:47] LABS: Basophils # (A) 0.1 k/uL (0-0.2); Basophils % (A) 1 %; Eosinophils # (A) 0.2 k/uL (0-0.7); Eosinophils % (A) 2 %; HCT 41.7 % (34.0-46.0); HGB 14.1 gm/dL (11.4-16.0); Lymphocytes # (A) 1.6 k/uL (1.0-4.8); Lymphocytes % (A) 18 %; MCH 29.7 pg (25.0-35.0); MCHC 33.9 g/dL (31.0-37.0); MCV 87.6 fL (80.0-100.0); Mean Platelet Volume 7.1; Monocytes # (A) 0.4 k/uL (0-1.0); Monocytes % (A) 5 %; Neutrophils # (A) 6.5 k/uL (1.3-7.7); Neutrophils % (A) 73 %; Platelet Count 300 k/uL (150-450); RBC 4.76 m/uL (3.80-5.40); RDW 12.4 % (11.5-15.5); WBC 8.9 k/uL (3.8-10.6)
[2022-08-29 18:57] LABS: ALT 19 U/L (4-34); AST 20 U/L (14-36); African American GFR (CKD) >90 (>60 ml/min/1.73 sqM); Albumin 4.2 g/dL (3.5-5.0); Alkaline Phosphatase 55 U/L (38-126); Anion Gap 6 mmol/L; Blood Urea Nitrogen 9 mg/dL (7-17); Carbon Dioxide 27 mmol/L (22-30); Chloride 106 mmol/L (98-107); Glucose 81 mg/dL (74-99); Non-African American GFR(CKD) >90 (>60 ml/min/1.73 sqM); Potassium 3.8 mmol/L (3.5-5.1); Sodium 139 mmol/L (137-145); Total Bilirubin 0.3 mg/dL (0.2-1.3); Total Protein 6.9 g/dL (6.3-8.2)
[2022-08-29 19:13] LABS: HCG,Quantitative Serum 673.4 mIU/mL
--- NOTE | 2022-08-29 20:03 | US ---
EXAMINATION TYPE: Transabdominal DATE OF EXAM: 08/29/2022 7:47 PM COMPARISON: NONE CLINICAL HISTORY: vaginal bleeding in early . Patient states spotting starting a few hours a go EXAM PERFORMED: Transabdominal (TA) EXAM MEASUREMENTS: GESTATIONAL AGE / DATING Physician Established: Not yet established Dates by LMP: ( 5 weeks/6 days) EDC: 04/25/2023 Dates by First Scan: No previous this is first scan Dates by Current Scan for: ( 4 weeks/6 days) EDC: 05/02/2023 MATERNAL ANATOMY Uterus: 8.0 x 4.7 x 4.1 cm Right Ovary: 2.7 x 1.6 x 1.3 cm Left Ovary: 3.3 x 2.0 x 1.9 cm Post CDS / Adnexa: no free fluid Presence of free fluid: no Presence of corpus luteal cyst: no GESTATION / SURVEY CRL: Not visualized MSD: 0.4 cm (4 weeks/6 days) Yolk Sac (normal less than 6mm): not visualized IUP: Possible small gestational sac visualized in endometrium Date of LMP: 07/19/2022, Beta HcG (if available): 08/29/22- 673.4 IMPRESSION: Small intrauterine gestational sac. Follow-up recommended in 14 days to confirm a living fetus. No ad nexal mass.
[2022-08-29 21:00] VITALS: BP 106/70; PULSE 80; TEMP 98.3
== END 2022-08-29 21:12 | disposition home or self-care (01) ==
LOC: EC 17:54
DX: O20.9 Hemorrhage in early pregnancy, unspecified (principal); O20.0 Threatened abortion; O99.511 Diseases of the respiratory system complicating pregnancy, first trimester; J45.909 Unspecified asthma, uncomplicated; O99.341 Other mental disorders complicating pregnancy, first trimester; F32.A Depression, unspecified; Z79.899 Other long term (current) drug therapy; Z3A.01 Less than 8 weeks gestation of pregnancy
CPT/HCPCS: 36415; 76801; 80053; 84702; 85025; 86900; 86901; 99284

== ENCOUNTER 2023-05-01 15:33 | Outpatient (CLI) | payer OTHER ==
[2023-05-01 16:39] LABS: Basophils % (A) 0 %; Eosinophils % (A) 0 %; HCT 33.2 % (34.0-46.0); HGB 12.2 gm/dL (11.4-16.0); Lymphocytes # (A) 1.7 k/uL (1.0-4.8); Lymphocytes % (A) 17 %; MCH 31.3 pg (25.0-35.0); MCHC 36.6 g/dL (31.0-37.0); MCV 85.6 fL (80.0-100.0); Monocytes # (A) 0.4 k/uL (0-1.0); Monocytes % (A) 4 %; Neutrophils # (A) 7.9 k/uL (1.3-7.7); Neutrophils % (A) 78 %; Platelet Count 248 k/uL (150-450); RBC 3.88 m/uL (3.80-5.40); RDW 13.3 % (11.5-15.5); WBC 10.1 k/uL (3.8-10.6)
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
[2023-05-01 17:28] VITALS: BP 110/59; PULSE 84; RESP 18; TEMP 97.2
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
== END 2023-05-01 17:05 | disposition home or self-care (01) ==
LOC: FBPOP 15:33
PROVIDERS: ATTEND Obstetrics & Gynecology
DX: O36.5920 Maternal care for other known or suspected poor fetal growth, second trimester, not applicable or unspecified (principal); Z3A.21 21 weeks gestation of pregnancy
CPT/HCPCS: 36415; 85025; 76805; G0463; 99215

== ENCOUNTER 2023-07-07 23:32 | Observation (INO) | payer OTHER ==
[2023-07-08] MEDS: LACTATED RINGERS 1,000 ML IV SCH ×5 (00:41→23:19)
[2023-07-08 00:57] LABS: Basophils % (A) 0 %; Eosinophils # (A) 0.1 k/uL (0-0.7); Eosinophils % (A) 1 %; HGB 11.3 gm/dL (11.4-16.0); Lymphocytes # (A) 1.5 k/uL (1.0-4.8); Lymphocytes % (A) 14 %; MCH 29.5 pg (25.0-35.0); MCHC 34.1 g/dL (31.0-37.0); MCV 86.3 fL (80.0-100.0); Mean Platelet Volume 7.6; Monocytes # (A) 0.5 k/uL (0-1.0); Monocytes % (A) 4 %; Neutrophils # (A) 8.7 k/uL (1.3-7.7); Neutrophils % (A) 80 %; Platelet Count 283 k/uL (150-450); Poikilocytosis Slight; RBC 3.83 m/uL (3.80-5.40); RDW 13.3 % (11.5-15.5); WBC 10.9 k/uL (3.8-10.6)
--- NOTE | 2023-07-08 02:23 | US ---
EXAM: US , Limited CLINICAL HISTORY: ITS.REASON US Reason: Trauma TECHNIQUE: Real-time limited ultrasound of the maternal uterus with image documentation. COMPARISON: No relevant prior studies available. FINDINGS: Fetus: Single viable intrauterine with a heart rate of 143 bpm. Placenta: Unremarkable. No Previa. IMPRESSION: 1. Limited exam 2. Intrauterine with an estimated gestational age of 29 weeks 6 days.
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
[2023-07-08] MEDS: BETAMET ACET-BETAMETH SOD PHOS 6 MG/ML MDV IM SCH (03:14)
[2023-07-08 03:56] LABS: Amphetamine Screen,Urine Not Detected (NotDetected); Appearance,Urine Cloudy (Clear); Bacteria,Urine Rare /hpf; Barbiturate Screen,Urine Not Detected (NotDetected); Benzodiazepines Screen,Urine Not Detected (NotDetected); Bilirubin,Urine Negative (Negative); Blood,Urine Negative (Negative); Cocaine Screen,Urine Not Detected (NotDetected); Color,Urine Light Yellow; Glucose,Urine (UA) Negative (Negative); Hyaline Casts,Urine 7 /lpf (0-2); Ketones,Urine 1+ (Negative); Leukocyte Esterase,Urine Small (Negative); Methadone Screen, Urine Not Detected (NotDetected); Mucus,Urine Few /hpf; Nitrite,Urine Negative (Negative); Opiate Screen,Urine Not Detected (NotDetected); Oxycodone Screen, Urine Not Detected (NotDetected); Phencyclidine Screen,Urine Not Detected (NotDetected); Protein,Urine Trace (Negative); RBC,Urine 2 /hpf (0-5); Specific Gravity,Urine 1.017 (1.001-1.035); Squamous Epithelial Cell,Urine 12 /hpf (0-4); Tricyclic Antidepressant,Urine Not Detected (NotDetected); Urn Cannabinoid Scrn Not Detected (NotDetected); Urobilinogen,Urine <2.0 mg/dL (<2.0); WBC,Urine 2 /hpf (0-5)
[2023-07-08 05:18] VITALS: RESP 16
--- NOTE | 2023-07-08 05:42 | US ---
EXAM: US Second or Third Trimester , Transabdominal CLINICAL HISTORY: ITS.REASON US Reason: contractions, trauma TECHNIQUE: Real-time transabdominal obstetrical ultrasound of the maternal pelvis and a second or third trimester with image documentation. COMPARISON: No relevant prior studies available. FINDINGS: Fetus: Single viable intrauterine Heart rate: 138 bpm Presentation: Vertex Placenta: Unremarkable. No abruption. Amniotic fluid: Unremarkable. Anatomy: Intracranial/face anatomy not seen. Spinal anatomy not seen. Abdominal anatomy not seen. Extremities not seen. Four-chamber heart not seen. Umbilical cord not seen. BIOMETRICS Gestational age: 29 weeks 6 days ARA: 09/17/2023 EFW: 1827 g 267 g BPD: 7.98 cm yielding an estimated gestational age of 32 weeks 1 day HC: 29.28 cm yielding estimated gestational age of 32 weeks 3 days AC: 28.0 9 cm Yielding an estimated gestational age of 32 weeks 3 day FL: 5.9 cm yielding estimated gestational age of 30 weeks 6 days. MATERNAL: Uterus: Unremarkable. No myometrial mass. Cervix: Unremarkable as visualized. Closed. Free fluid: No free fluid. IMPRESSION: Normal intrauterine gestation.
[2023-07-08 06:50] VITALS: TEMP 97.8
[2023-07-08 07:20] LABS: HCT 33.7 % (34.0-46.0); HGB 11.5 gm/dL (11.4-16.0); MCH 29.9 pg (25.0-35.0); MCHC 34.3 g/dL (31.0-37.0); MCV 87.3 fL (80.0-100.0); Mean Platelet Volume 7.4; Platelet Count 286 k/uL (150-450); RBC 3.86 m/uL (3.80-5.40); RDW 12.9 % (11.5-15.5); WBC 10.9 k/uL (3.8-10.6)
[2023-07-08 07:28] LABS: INR 0.9 (<1.2); Partial Thromboplastin Time 23.8 sec (22.0-30.0); Prothrombin Time 9.6 sec (9.0-12.0)
[2023-07-09] MEDS: BETAMET ACET-BETAMETH SOD PHOS 6 MG/ML MDV IM SCH (02:16)
[2023-07-09] MEDS: LACTATED RINGERS 1,000 ML IV SCH ×3 (03:55→08:44)
[2023-07-09 08:47] VITALS: BP 98/51; PULSE 97
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
== END 2023-07-09 10:17 | disposition home or self-care (01) ==
LOC: FBPOP 23:32 → 4FBP 07-08 03:05
PROVIDERS: ADMIT Obstetrics & Gynecology; ATTEND Obstetrics & Gynecology
DX: O9A.313 Physical abuse complicating pregnancy, third trimester (principal); O60.03 Preterm labor without delivery, third trimester; Y04.2XXA Assault by strike against or bumped into by another person, initial encounter; Z3A.29 29 weeks gestation of pregnancy; O99.513 Diseases of the respiratory system complicating pregnancy, third trimester; J45.909 Unspecified asthma, uncomplicated; O99.353 Diseases of the nervous system complicating pregnancy, third trimester; G40.909 Epilepsy, unspecified, not intractable, without status epilepticus; O99.343 Other mental disorders complicating pregnancy, third trimester; F32.A Depression, unspecified; F41.9 Anxiety disorder, unspecified; Z79.899 Other long term (current) drug therapy; Z81.3 Family history of other psychoactive substance abuse and dependence
CPT/HCPCS: 59025; 96372 ×2; 84112; 86900; 86901; 85025; 85027; 85384; 85610; 85730; 86850; 81001; 80306; 76805; 76815; G0463; G0378 ×2; J0702 ×2; 96360; 96361; 99215

== ENCOUNTER 2023-07-14 15:00 | Outpatient (CLI) | payer OTHER ==
[2023-07-14 15:50] VITALS: BP 107/69; PULSE 120; RESP 18; TEMP 97.1
== END 2023-07-14 15:49 | disposition home or self-care (01) ==
LOC: FBPOP 15:00
PROVIDERS: ATTEND Obstetrics & Gynecology
DX: Z53.9 Procedure and treatment not carried out, unspecified reason (principal)
CPT/HCPCS: 59025; G0463; 99213

== ENCOUNTER 2023-08-10 01:23 | Inpatient (IN) | payer OTHER ==
[2023-08-10 01:57] LABS: Basophils % (A) 0 %; Eosinophils # (A) 0.3 k/uL (0-0.7); Eosinophils % (A) 3 %; HCT 33.2 % (34.0-46.0); HGB 11.6 gm/dL (11.4-16.0); Hypochromasia Slight; Lymphocytes # (A) 1.8 k/uL (1.0-4.8); Lymphocytes % (A) 14 %; MCH 28.7 pg (25.0-35.0); Mean Platelet Volume 7.6; Monocytes # (A) 0.6 k/uL (0-1.0); Monocytes % (A) 5 %; Neutrophils # (A) 9.9 k/uL (1.3-7.7); Neutrophils % (A) 78 %; Platelet Count 289 k/uL (150-450); Poikilocytosis Slight; RBC 4.04 m/uL (3.80-5.40); RDW 13.7 % (11.5-15.5); WBC 12.7 k/uL (3.8-10.6)
[2023-08-10] MEDS ORDERED: LACTATED RINGERS 1,000 ML IV SCH ×2 (02:00→03:30)
[2023-08-10] MEDS ORDERED: AMPICILLIN 2,000 MG in SODIUM CHLORIDE 0.9% 100 ML IVPB STA (03:23)
[2023-08-10] MEDS ORDERED: miSOPROStoL 200 MCG TAB PO PRN (03:23)
[2023-08-10] MEDS ORDERED: CARBOPROST TROMETHAMINE 250 MCG/ML 1 ML AMP IM PRN (03:23)
[2023-08-10] MEDS ORDERED: TRANEXAMIC 1,000 MG/100ML-NACL 1,000 MG in EMPTY BAG 1 BAG IV PRN (03:23)
[2023-08-10] MEDS ORDERED: METHYLERGONOVINE 0.2 MG/ML 1 ML AMP IM PRN (03:23)
[2023-08-10] MEDS ORDERED: TERBUTALINE 1 MG/ML VIAL SQ PRN (03:23)
[2023-08-10] MEDS ORDERED: LIDOCAINE 0.5% (PF) 5 MG/ML (50 ML SDV) SQ PRN (03:23)
[2023-08-10] MEDS ORDERED: OXYTOCIN 10 UNIT/ML 1 ML VIAL IM PRN (03:23)
[2023-08-10] MEDS ORDERED: NALBUPHINE 10 MG/ML (10 ML MDV) IV PRN (03:24)
[2023-08-10 03:36] LABS: Amorphous Sediment,Urine Few /hpf; Appearance,Urine Cloudy (Clear); Bilirubin,Urine Negative (Negative); Blood,Urine Trace (Negative); Color,Urine Yellow; Glucose,Urine (UA) Negative (Negative); Granular Casts,Urine 3 /lpf (0); Hyaline Casts,Urine 2 /lpf (0-2); Ketones,Urine Negative (Negative); Leukocyte Esterase,Urine Negative (Negative); Mucus,Urine Many /hpf; Nitrite,Urine Negative (Negative); Protein,Urine Trace (Negative); RBC,Urine 2 /hpf (0-5); Squamous Epithelial Cell,Urine 2 /hpf (0-4); Uric Acid Crystals,Urine Few /hpf; Urobilinogen,Urine <2.0 mg/dL (<2.0); WBC,Urine 4 /hpf (0-5)
--- NOTE | 2023-08-10 03:37 | P.HPOB ---
History of Present Illness H&P Date: 08/10/23 Chief Complaint: Contractions This patient is a 28-year-old 4 para 2 female estimated date of confinement 09/17/2023 estimated gestational age 34-4/7 weeks who presents to labor and delivery with complaints of regular painful contractions for the last few hours. Patient's has been in labor and delivery previously for contractions and on July 08 was given [place] and admitted. Patient's care is per Dr. Mejia appears to be complicated by contractions and she was also incarcerated during this . Review of Systems Genitourinary: Reports Menstruation: Reports amenorrhea Past Medical History Past Medical History: Asthma, Seizure Disorder Additional Past Medical History / Comment(s): migraines, pt had seizure in ER 09/11/16, no seizures since; patient's had 2 previous vaginal deliveries History of Any Multi-Drug Resistant Organisms: None Reported Past Surgical History: No Surgical Hx Reported Past Anesthesia/Blood Transfusion Reactions: No Reported Reaction Past Psychological History: Bipolar Smoking Status: Never smoker, Unknown if ever smoked Past Alcohol Use History: None Reported Past Drug Use History: None Reported - Past Family History Mother Additional Family Medical History / Comment(s): Pt states her mother is addicted to heroin and crack. Father Family Medical History: No Reported History Additional Family Medical History / Comment(s): Pt states her father is incarcerated for sexual assault. Medications and Allergies Home Medications Medication Instructions Recorded Confirmed Type Cxc-Rtzt-Jamyh Acid 1 cap PO DAILY 10/01/18 08/10/23 History [-U Capsule (formulary)] Albuterol Sulfate [Proair Hfa] 1 - 2 puff INHALATION RT-QID PRN 10/10/18 07/14/23 History Albuterol Inhaler [Ventolin Hfa 2 puff INHALATION RT-QID #8 gm 10/06/21 07/14/23 Rx Inhaler] Sertraline [Zoloft] 25 mg PO DAILY 05/01/23 08/10/23 History diphenhydrAMINE HCL [Benadryl] 25 mg PO HS 05/01/23 07/14/23 History Allergies Allergy/AdvReac Type Severity Reaction Status Date / Time No Known Allergies Allergy Verified 08/10/23 01:29 EST Exam Intake and Output 08/09/23 08/09/23 08/10/23 14:59 22:59 05:59 Other: Weight 68.039 kg - OBG Physical Exam Abdomen: bowel sounds normal, no diffuse tenderness, no bruit present, no guarding noted, no hepatomegaly, no splenomegaly, no mass Vulva: both: normal Vagina: normal moisture, no discharge Cervix: no lesion (Cervix is 3 cm dilated 50% effaced vertex presentation with gross rupture membranes and bloody show), no discharge Uterus: enlarged Results blood work shows she is A positive, rubella nonimmune, RPR is nonreactive, hepatitis B and C negative, HIV is nonreactive. Group B strep is unknown Result Diagrams: 08/10/23 01:47 EST Abnormal Lab Results - Last 24 Hours (Table) 08/10/23 Range/Units 01:47 EST WBC 12.7 H (3.8-10.6) k/uL Hct 33.2 L (34.0-46.0) % Neutrophils # 9.9 H (1.3-7.7) k/uL Assessment and Plan Assessment: This is a 28-year-old 4 para 2 female 34 4/7 weeks gestation with contractions and has had premature rupture membranes while here in triage this evening. Bedside ultrasound shows infant to be vertex. She is having bloody show, has had cervical change, and reports a history of fast labors. Due to these conditions I do not feel it is safe to transfer her to a tertiary facility therefore she'll be admitted for delivery and we'll alert the redrying machine operator's and the baby will need to be transferred after delivery. It appears patient has a history of positive strep in a previous . Due to this and her prematurity she'll be placed on IV antibiotics. Patient did receive a course of steroids on July 08 and therefore does not need to be repeated per protocol. I've explained all the following conditions to the pa tient she understands. All her questions are answered. At this point we anticipate a vaginal delivery. (1) 34 weeks gestation of Current Visit: Yes Status: Acute Code(s): Z3A.34 - 34 WEEKS GESTATION OF SNOMED Code(s): 67809625 (2) labor Current Visit: Yes Status: Acute Code(s): O60.00 - LABOR WITHOUT DELIVERY, UNSPECIFIED TRIMESTER SNOMED Code(s): 1978535 (3) PROM (premature rupture of membranes) Current Visit: Yes Status: Acute Code(s): O42.90 - KARLIE ROM, 7TH0 BETW RUPT & ONST LABR, UNSP WEEKS OF GEST SNOMED Code(s): 61943329
[2023-08-10] MEDS ORDERED: fentaNYL (PF) 50 MCG/ML 5 ML AMP ONE (04:20)
[2023-08-10] MEDS ORDERED: ROPIVACAINE 5 MG/ML 30 ML VIAL ONE (04:20)
[2023-08-10] MEDS ORDERED: SODIUM CHLORIDE 0.9% 250 ML BAG ONE (04:20)
[2023-08-10 05:31] VITALS: RESP 16
[2023-08-10] MEDS ORDERED: IBUPROFEN 600 MG TAB PO PRN (06:31)
[2023-08-10] MEDS ORDERED: HYDROCORTISONE 2.5% RECTAL CREAM 30 GM TUBE RECTAL PRN (06:31)
[2023-08-10] MEDS ORDERED: ZOLPIDEM 5 MG TAB PO PRN (06:31)
[2023-08-10] MEDS ORDERED: bisacodyL 10 MG SUPP RECTAL PRN (06:31)
[2023-08-10] MEDS ORDERED: diphenhydrAMINE 50 MG/ML 1 ML VIAL IVP PRN (06:31)
[2023-08-10] MEDS ORDERED: MEASLES-MUMPS-RUBELLA VACC/PF 12,500 UNIT/0.5 ML VIAL SQ ONE (06:31)
[2023-08-10] MEDS ORDERED: SIMETHICONE 80 MG CHEWABLE PO PRN (06:31)
[2023-08-10] MEDS ORDERED: BENZOCAINE/MENTHOL SPRAY 1 GM/SPRAY AEROSOL TOPICAL PRN (06:31)
[2023-08-10] MEDS ORDERED: diphenhydrAMINE 25 MG CAP PO PRN (06:31)
[2023-08-10] MEDS ORDERED: ACETAMINOPHEN TAB 325 MG TAB PO PRN (06:31)
[2023-08-10] MEDS ORDERED: LANOLIN CREAM 5 GM TUBE TOPICAL PRN (06:31)
[2023-08-10] MEDS ORDERED: OXYTOCIN 30 UNITS/500 ML NS 30 UNIT in SALINE 1 500ML.BAG IV SCH (06:45)
--- NOTE | 2023-08-10 06:51 | P.PROBDLV ---
Vaginal Delivery Note - . Vaginal Delivery Note: Normal spontaneous vaginal delivery viable male infant Apgars 5 and 7 at 0618 hrs. Please see dictated H&P for intimate details of this patient's admission. In brief summary this is a 28-year-old 4 para 2 female 34-4/7 weeks gestation who is admitted to labor and delivery with complaints of contractions and has spontaneous rupture of membranes. Patient is felt to be in active labor and not stable for transfer. heart tones are category 1. Patient gets one dose of Nubain for pain control. Labor progresses and she quickly gets to complete. Patient pushes the head to the perineum. Posterior perineum is supported and we have controlled delivery of the 's head over the intact perineum. Mouth and nares are bulb suctioned. There is a nuchal cord 2 which is loose and reduced. We then with gentle downward traction have delivery the anterior and posterior shoulder and rest this 's body. This is a vigorous viable male infant Apgars are 5 and 7. Warp Drawer is present for delivery. The umbilical cord is doubly clamped and cut appears to be trivascular. The placenta is then spontaneously delivered intact. Estimated blood loss is 200 mL. There are no lacerations and no repairs required. Infant is taken to special care for evaluation and treatment and mother are stable in delivery room. There are no complications. All counts are correct 3.
[2023-08-10] MEDS ORDERED: AMPICILLIN 1,000 MG in SODIUM CHLORIDE 0.9% 50 ML IVPB SCH (07:30)
[2023-08-10] MEDS ORDERED: SENNOSIDES-DOCUSATE SODIUM 1 EACH TAB PO SCH (08:00)
[2023-08-10 08:52] VITALS: BP 131/65; PULSE 98; TEMP 98.2
--- NOTE | 2023-08-10 09:04 | P.PNOBGVD ---
Subjective - Subjective Patient reports: Reports appetite normal, Reports voiding normally, Reports pain well controlled, Reports ambulating normally : doing well, in NICU, transported (Infant is being transported secondary to prematurity) Objective - Latest Vital Signs Latest vital signs: Vital Signs Temp Pulse Resp BP Pulse Ox 08/10/23 08:25 98.2 F 98 16 131/65 08/10/23 07:55 69 16 124/65 08/10/23 07:25 80 16 125/84 08/10/23 07:10 90 16 131/74 08/10/23 06:55 90 16 138/80 08/10/23 06:40 97.9 F 113 H 16 138/87 08/10/23 06:25 105 H 16 134/86 98 08/10/23 03:19 97.0 F L 88 16 124/81 08/10/23 02:30 97.0 F L 88 16 124/81 99 Intake and Output 08/09/23 08/10/23 08/10/23 23:59 06:59 14:59 Intake Total 480 Output Total 206 Balance 274 Intake: Oral 480 Output: Output, Quantitative 206 Blood Loss Other: # Voids 1 Weight - Exam Lungs: bilateral: normal Chest: Normal S1, Normal S2 Extremities: Present: normal Abdomen: Present: normal appearance, soft Uterus: Present: normal, firm - Labs Labs: Abnormal Lab Results - Last 24 Hours (Table) 08/10/23 08/10/23 Range/Units 01:47 EST 02:07 WBC 12.7 H (3.8-10.6) k/uL Hct 33.2 L (34.0-46.0) % Neutrophils # 9.9 H (1.3-7.7) k/uL Urine Appearance Cloudy H (Clear) Urine Protein Trace H (Negative) Urine Blood Trace H (Negative) Uric Acid Crystals Few H (None) /hpf Amorphous Sediment Few H (None) /hpf Urine Mucus Many H (None) /hpf Assessment and Plan Assessment: Patient has recent from this morning. Babies being transported to a tertiary facility secondary to prematurity. Patient requests to leave today. She did have some uterine atony initially but this resolved with Pitocin and one dose of Methergine. She is now having normal lochia. Since her delivery was uncomplicated I feel that she is stable for her to be discharged if she desires to see her baby. Therefore patient be discharged home follow up with Dr. Mejia in 6 weeks (1) 34 weeks gestation of Current Visit: Yes Status: Acute Code(s): Z3A.34 - 34 WEEKS GESTATION OF SNOMED Code(s): 17572777 (2) labor Current Visit: Yes Status: Acute Code(s): O60.00 - LABOR WITHOUT DELIVERY, UNSPECIFIED TRIMESTER SNOMED Code(s): 6213633 (3) PROM (premature rupture of membranes) Current Visit: Yes Status: Acute Code(s): O42.90 - KARLIE ROM, 7TH0 BETW RUPT & ONST LABR, UNSP WEEKS OF GEST SNOMED Code(s): 83737642
--- NOTE | 2023-08-10 09:18 | P.DS ---
Providers Date of admission: 08/10/23 03:11 Expected date of discharge: 08/10/23 Attending physician: Priyanka Mejia Primary care physician: Stated None - Discharge Diagnosis(es) (1) 34 weeks gestation of Current Visit: Yes Status: Acute (2) labor Current Visit: Yes Status: Acute (3) PROM (premature rupture of membranes) Current Visit: Yes Status: Acute Hospital Course: Please see dictated admission history and physical and delivery note on this patient's admission. Brief summary this is a 28-year-old 4 para 2 female 34-4/7 weeks gestation admitted to labor and delivery with complaints of regular painful contractions and subsequently has spontaneous rupture membranes while in triage. Patient is found to be in active labor and unstable for transfer secondary to prematurity. Patient was given a dose of antibiotics and sheet artery received a course of steroids. Patient's labor did progress quickly and she went on to have a vaginal delivery of viable male . Please see dictated delivery note. Since the patient's baby was being transported due to prematurity she wished for discharge later in the day. Patient was felt be stable for discharge follow-up with Dr. Mejia 6 weeks Procedures: Normal spontaneous vaginal delivery Patient Condition at Discharge: Good Plan - Discharge Summary New Discharge Prescriptions: New Ibuprofen [Motrin] 600 mg PO Q6HR PRN #40 tab PRN Reason: Mild Pain (Scale 1 To 3) No Action Nbf-Nxeh-Aofin Acid [-U Capsule (formulary)] 1 cap PO DAILY Albuterol Sulfate [Proair Hfa] 1 - 2 puff INHALATION RT-QID PRN PRN Reason: Shortness Of Breath Albuterol Inhaler [Ventolin Hfa Inhaler] 2 puff INHALATION RT-QID #8 gm diphenhydrAMINE HCL [Benadryl] 25 mg PO HS Sertraline [Zoloft] 25 mg PO DAILY Discharge Medication List Rhj-Mghl-Azfvm Acid [-U Capsule (formulary)] 1 cap PO DAILY 10/01/18 [History] Albuterol Sulfate [Proair Hfa] 1 - 2 puff INHALATION RT-QID PRN 10/10/18 [History] Albuterol Inhaler [Ventolin Hfa Inhaler] 2 puff INHALATION RT-QID #8 gm 10/06/21 [Rx] Sertraline [Zoloft] 25 mg PO DAILY 05/01/23 [History] diphenhydrAMINE HCL [Benadryl] 25 mg PO HS 05/01/23 [History] Ibuprofen [Motrin] 600 mg PO Q6HR PRN #40 tab 08/10/23 [Rx] Follow up Appointment(s)/Referral(s): Priyanka Mejia DO [Doctor of Osteopathic Medicine] - 6 Weeks Patient Instructions/Handouts: Vaginal Delivery (DC) Activity/Diet/Wound Care/Special Instructions: No intercourse or anything per vagina for 6 weeks. Please call if any fever, chills, excessive vaginal bleeding, and/or abdominal pain. Please call the office upon discharge to schedule appointment with Dr. Mejia in 6 weeks. Discharge Disposition: HOME SELF-CARE
== END 2023-08-10 12:16 | disposition home or self-care (01) | DRG 560 ==
LOC: FBPOP 01:23 → 4FBP 03:11
PROVIDERS: ADMIT Obstetrics & Gynecology; ATTEND Obstetrics & Gynecology
PROC: 3E0134Z Introduction of Serum, Toxoid and Vaccine into Subcutaneous Tissue, Percutaneous Approach (ICD-10-PCS; principal; 2023-08-10)
PROC: 10E0XZZ Delivery of Products of Conception, External Approach (ICD-10-PCS; principal; 2023-08-10)
DX: O60.14X0 Preterm labor third trimester with preterm delivery third trimester, not applicable or unspecified (principal); O99.824 Streptococcus B carrier state complicating childbirth; O62.3 Precipitate labor; O69.81X0 Labor and delivery complicated by cord around neck, without compression, not applicable or unspecified; O62.2 Other uterine inertia; O99.52 Diseases of the respiratory system complicating childbirth; O99.354 Diseases of the nervous system complicating childbirth; O99.344 Other mental disorders complicating childbirth; G40.909 Epilepsy, unspecified, not intractable, without status epilepticus; J45.909 Unspecified asthma, uncomplicated; F31.9 Bipolar disorder, unspecified; Z79.899 Other long term (current) drug therapy; Z79.51 Long term (current) use of inhaled steroids; Z23 Encounter for immunization; Z28.310 Unvaccinated for COVID-19; Z3A.34 34 weeks gestation of pregnancy; Z37.0 Single live birth
CPT/HCPCS: 36415; 59025; 81001; 85025; 86850; 86900; 86901; 90707; 96360; 99213

== ENCOUNTER 2023-09-26 04:46 | Emergency (ER) | payer OTHER ==
[2023-09-26 05:08] VITALS: BP 122/73; PULSE 66; RESP 16; TEMP 97.7
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
== END 2023-09-26 05:41 | disposition home or self-care (01) ==
LOC: EC 04:46
DX: S51.812A Laceration without foreign body of left forearm, initial encounter (principal); J45.909 Unspecified asthma, uncomplicated; F31.9 Bipolar disorder, unspecified; Z79.899 Other long term (current) drug therapy; W26.8XXA Contact with other sharp object(s), not elsewhere classified, initial encounter
CPT/HCPCS: 12002; 99283

== ENCOUNTER 2024-03-16 23:33 | Emergency (ER) | payer OTHER ==
[2024-03-16 23:37] VITALS: TEMP 97.6
--- NOTE | 2024-03-16 23:55 | ED ---
General Adult HPI - General Chief complaint: Vaginal Bleeding Stated complaint: vaginal bleeding 8 weeks Time Seen by Provider: 03/16/24 23:38 Source: patient Limitations: no limitations - History of Present Illness Initial comments: Dictation was produced using [employer] dictation software. please excuse any grammatical, word or spelling errors. Chief Complaint: 28-year-old male with vaginal spotting in History of Present Illness: Patient 28-year-old female. She is allegedly 7 8 weeks has not follow-up with OB yet. She takes vitamins. Has not had an ultrasound for this . Patient states she had some spotting today. Along with some pelvic cramping. Patient is here just to make sure everything is okay. Denies any fever, chills or night sweats. The ROS documented in this emergency department record has been reviewed and confirmed by me. Those systems with pertinent positive or negative responses have been documented in the HPI. All other systems are other negative and/or noncontributory. - Related Data Home Medications Medication Instructions Recorded Confirmed Off-Cqim-Hyywf Acid 1 cap PO DAILY 10/01/18 08/10/23 [-U Capsule (formulary)] Albuterol Sulfate [Proair Hfa] 1 - 2 puff INHALATION RT-QID PRN 10/10/18 07/14/23 Sertraline [Zoloft] 25 mg PO DAILY 05/01/23 08/10/23 diphenhydrAMINE HCL [Benadryl] 25 mg PO HS 05/01/23 07/14/23 Previous Rx's Medication Instructions Recorded Albuterol Inhaler [Ventolin Hfa 2 puff INHALATION RT-QID #8 gm 10/06/21 Inhaler] Ibuprofen [Motrin] 600 mg PO Q6HR PRN #40 tab 08/10/23 Cephalexin [Keflex] 500 mg PO Q6HR 5 Days #20 cap 09/26/23 Allergies Allergy/AdvReac Type Severity Reaction Status Date / Time No Known Allergies Allergy Verified 03/16/24 23:37 Review of Systems ROS Statement: Those systems with pertinent positive or pertinent negative responses have been documented in the HPI. ROS Other: All systems not noted in ROS Statement are negative. Past Medical History Past Medical History: Asthma, Seizure Disorder Additional Past Medical History / Comment(s): migraines, pt had seizure in ER 12/7/16, no seizures since; patient's had 2 previous vaginal deliveries History of Any Multi-Drug Resistant Organisms: None Reported Past Surgical History: No Surgical Hx Reported Past Anesthesia/Blood Transfusion Reactions: No Reported Reaction Past Psychological History: Bipolar Smoking Status: Never smoker, Vaper Past Alcohol Use History: None Reported Past Drug Use History: None Reported - Past Family History Mother Additional Family Medical History / Comment(s): Pt states her mother is addicted to heroin and crack. Father Family Medical History: No Reported History Additional Family Medical History / Comment(s): Pt states her father is incarcerated for sexual assault. General Exam - General Exam Comments Initial Comments: PHYSICAL EXAM: General Impression: Alert and oriented x3, not in acute distress HEENT: Normocephalic atraumatic, extra-ocular movements intact, pupils equal and reactive to light bilaterally, mucous membranes moist. Cardiovascular: Heart regular rate and rhythm Chest: Able to complete full sentences, no retractions, no tachypnea Abdomen: abdomen soft, non-tender, non-distended, no organomegaly Musculoskeletal: Pulses present and equal in all extremities, no peripheral edema Motor: no focal deficits noted Neurological: CN II-XII grossly intact, no focal motor or sensory deficits noted Skin: Intact with no visualized rashes Psych: Normal affect and mood Pelvic exam: Refused Limitations: no limitations Course Vital Signs 03/16/24 03/17/24 23:34 00:34 Temperature 97.6 F Pulse Rate 102 H 81 Respiratory 18 16 Rate Blood Pressure 128/83 130/79 O2 Sat by Pulse 99 99 Oximetry Medical Decision Making - Medical Decision Making Was pt. sent in by a medical professional or institution ([facility], [facility] [employer], urgent care, hospital, or assisted...) When possible be specific @ -No Did you speak to anyone other than the patient for history (EMS, parent, family, police, friend...)? What history was obtained from this source @ -No Did you review nursing and triage notes (agree or disagree)? Why? @ -I reviewed and agree with nursing and triage notes Were old charts reviewed (outside hosp., previous admission, EMS record, old EKG, old radiological studies, urgent care reports/EKG's, assisted records)? Report findings @ -No old charts were reviewed Differential Diagnosis (chest pain, altered mental status, abdominal pain women, abdominal pain men, vaginal bleeding, musculoskeletal, weakness, fever, dyspnea, syncope, headache, dizziness, GI bleed, back pain, seizure, CVA, palpatations, mental health)? @ -Differential Abdominal Pain Women: Appendicitis, Cholecystitis, diverticulosis, ischemic bowel, pancreatitis, hepatitis, UTI, gastroenteritis, AAA, incarcerated hernia, bowel obstruction, constipation, inflammatory bowel, hepatitis, peptic ulcer disease, splenic infarction, perforated viscus, vulvitis, ovarian torsion, PID, kidney stone, placenta abruption, this is not meant to be an all-inclusive list EKG interpreted by me (3pts min.). @ -None done X-rays interpreted by me (1pt min.). @ -None done CT interpreted by me (1pt min.). @ -None done U/S interpreted by me (1pt. min.). @ -None done What testing was considered but not performed or refused? (CT, X-rays, U/S, labs)? Why? @ -None What meds were considered but not given or refused? Why? @ -None Did you discuss the management of the patient with other professionals (professionals i.e. , PA, [employer], lab, RT, psych nurse, forensic social worker, insurance law specialist, teacher, school services officer, protective services case worker)? Give summary @ -No Was smoking cessation discussed for >3mins.? @ -No Was critical care preformed (if so, how long)? @ -No Were there social determinants of health that impacted care today? How? (Homelessness, low income, unemployed, alcoholism, drug addiction, transportation, low edu. Level, literacy, decrease access to med. care, half-way, rehab)? @ -No Was there de-escalation of care discussed even if they declined (Discuss DNR or withdrawal of care, Hospice)? DNR status @ -No What co-morbidities impacted this encounter? (DM, HTN, Smoking, COPD, CAD, Cancer, CVA, ARF, Chemo, Hep., AIDS, mental health diagnosis, sleep apnea, morbid obesity)? @ -None Was patient admitted / discharged? Hospital course, mention meds given and route, prescriptions, significant lab abnormalities, going to OR and other pertinent info. @ -28-year-old female with vaginal bleeding in . Vital signs stable. Physical examination is benign. Patient well-appearing. Patient refusing pelvic exam. Laboratory evaluation obtained. CBC is unremarkable. Metabolic panel is negative. Beta quant is 408. Urinalysis shows 58 red blood cells. Blood type is a positive. Ultrasound shows no IUP at this time. Patient monitored in the emergency department for several hours due to long wait times for radiology reads. Patient given 48-hour beta quant test. Advised follow-up with [facility] . Patient reevaluated bedside at 6:02 AM on to be stable medical addition. Patient given ectopic precautions. Patient agreeable with discharge. Undiagnosed new problem with uncertain prognosis? @ -No Drug Therapy requiring intensive monitoring for toxicity (Heparin, Nitro, Insulin, Cardizem)? @ -No Were any procedures done? @ -No Diagnosis/symptom? Acute, or Chronic, or Acute on Chronic? Uncomplicated (without systemic symptoms) or Complicated (systemic symptoms)? @ -Vaginal bleeding in Side effects of treatment? @ -No Exacerbation, Progression, or Severe Exacerbation? @ -No Poses a threat to life or bodily function? How? (Chest pain, USA, SD, pneumonia, PE, COPD, DKA, ARF, appy, cholecystitis, CVA, Diverticulitis, Homicidal, Suicidal, threat to staff... and all critical care pts) @ -yes - Lab Data Result diagrams: 03/17/24 00:04 03/17/24 00:04 Lab Results 03/16/24 03/17/24 03/17/24 Range/Units 23:55 00:04 00:04 WBC 8.3 (3.8-10.6) k/uL RBC 4.63 (3.80-5.40) m/uL Hgb 13.0 (11.4-16.0) gm/dL Hct 38.7 (34.0-46.0) % MCV 83.4 (80.0-100.0) fL MCH 28.1 (25.0-35.0) pg MCHC 33.6 (31.0-37.0) g/dL RDW 14.4 (11.5-15.5) % Plt Count 245 (150-450) k/uL MPV 7.3 Neutrophils % 71 % Lymphocytes % 20 % Monocytes % 5 % Eosinophils % 3 % Basophils % 0 % Neutrophils # 5.9 (1.3-7.7) k/uL Lymphocytes # 1.6 (1.0-4.8) k/uL Monocytes # 0.4 (0-1.0) k/uL Eosinophils # 0.3 (0-0.7) k/uL Basophils # 0.0 (0-0.2) k/uL Sodium (137-145) mmol/L Potassium (3.5-5.1) mmol/L Chloride (98-107) mmol/L Carbon Dioxide (22-30) mmol/L Anion Gap mmol/L BUN (7-17) mg/dL Creatinine (0.52-1.04) mg/dL Est GFR (CKD-EPI)AfAm (>60 ml/min/1.73 sqM) Est GFR (CKD-EPI)NonAf (>60 ml/min/1.73 sqM) Glucose (74-99) mg/dL Calcium (8.4-10.2) mg/dL HCG, Quant mIU/mL Urine Color Colorless Urine Appearance Cloudy H (Clear) Urine pH 6.5 (5.0-8.0) Ur Specific [place] 1.022 (1.001-1.035) Urine Protein Negative (Negative) Urine Glucose (UA) Negative (Negative) Urine Ketones Negative (Negative) Urine Blood Moderate H (Negative) Urine Nitrite Negative (Negative) Urine Bilirubin Negative (Negative) Urine Urobilinogen <2.0 (<2.0) mg/dL Ur Leukocyte Esterase Trace H (Negative) Urine RBC 58 H (0-5) /hpf Urine WBC 2 (0-5) /hpf Ur Squamous Epith Cells 7 H (0-4) /hpf Amorphous Sediment Rare H (None) /hpf Hyaline Casts 1 (0-2) /lpf Urine Mucus Rare H (None) /hpf Blood Type A Positive Blood Type Recheck A Pos Bld Type Recheck Status No Spec Expiration Date 03/19/2024235403/17/24 Range/Units 00:04 WBC (3.8-10.6) k/uL RBC (3.80-5.40) m/uL Hgb (11.4-16.0) gm/dL Hct (34.0-46.0) % MCV (80.0-100.0) fL MCH (25.0-35.0) pg MCHC (31.0-37.0) g/dL RDW (11.5-15.5) % Plt Count (150-450) k/uL MPV Neutrophils % % Lymphocytes % % Monocytes % % Eosinophils % % Basophils % % Neutrophils # (1.3-7.7) k/uL Lymphocytes # (1.0-4.8) k/uL Monocytes # (0-1.0) k/uL Eosinophils # (0-0.7) k/uL Basophils # (0-0.2) k/uL Sodium 137 (137-145) mmol/L Potassium 3.8 (3.5-5.1) mmol/L Chloride 108 H (98-107) mmol/L Carbon Dioxide 23 (22-30) mmol/L Anion Gap 6 mmol/L BUN 11 (7-17) mg/dL Creatinine 0.58 (0.52-1.04) mg/dL Est GFR (CKD-EPI)AfAm >90 (>60 ml/min/1.73 sqM) Est GFR (CKD-EPI)NonAf >90 (>60 ml/min/1.73 sqM) Glucose 84 (74-99) mg/dL Calcium 9.2 (8.4-10.2) mg/dL HCG, Quant 408.2 mIU/mL Urine Color Urine Appearance (Clear) Urine pH (5.0-8.0) Ur Specific [place] (1.001-1.035) Urine Protein (Negative) Urine Glucose (UA) (Negative) Urine Ketones (Negative) Urine Blood (Negative) Urine Nitrite (Negative) Urine Bilirubin (Negative) Urine Urobilinogen (<2.0) mg/dL Ur Leukocyte Esterase (Negative) Urine RBC (0-5) /hpf Urine WBC (0-5) /hpf Ur Squamous Epith Cells (0-4) /hpf Amorphous Sediment (None) /hpf Hyaline Casts (0-2) /lpf Urine Mucus (None) /hpf Blood Type Blood Type Recheck Bld Type Recheck Status Spec Expiration Date Disposition Clinical Impression: Vaginal bleeding Disposition: HOME SELF-CARE Condition: Fair Instructions (If sedation given, give patient instructions): Threatened Miscarriage (ED) Additional Instructions: Follow-up with [facility] after 48-hour blood testing. Please return to emergency department with worsening bleeding or pain. If you do not have an OB to follow- up with patient please follow-up with Dr. Vasquez Is patient prescribed a controlled substance at d/c from ED?: No Time of Disposition: 06:04
[2024-03-17 00:15] LABS: Basophils % (A) 0 %; Eosinophils # (A) 0.3 k/uL (0-0.7); Eosinophils % (A) 3 %; HCT 38.7 % (34.0-46.0); Lymphocytes # (A) 1.6 k/uL (1.0-4.8); Lymphocytes % (A) 20 %; MCH 28.1 pg (25.0-35.0); MCHC 33.6 g/dL (31.0-37.0); MCV 83.4 fL (80.0-100.0); Mean Platelet Volume 7.3; Monocytes # (A) 0.4 k/uL (0-1.0); Monocytes % (A) 5 %; Neutrophils # (A) 5.9 k/uL (1.3-7.7); Neutrophils % (A) 71 %; Platelet Count 245 k/uL (150-450); RBC 4.63 m/uL (3.80-5.40); RDW 14.4 % (11.5-15.5); WBC 8.3 k/uL (3.8-10.6)
[2024-03-17 00:30] LABS: African American GFR (CKD) >90 (>60 ml/min/1.73 sqM); Anion Gap 6 mmol/L; Blood Urea Nitrogen 11 mg/dL (7-17); Calcium 9.2 mg/dL (8.4-10.2); Carbon Dioxide 23 mmol/L (22-30); Chloride 108 mmol/L (98-107); Glucose 84 mg/dL (74-99); Non-African American GFR(CKD) >90 (>60 ml/min/1.73 sqM); Potassium 3.8 mmol/L (3.5-5.1); Sodium 137 mmol/L (137-145)
[2024-03-17 00:33] LABS: Amorphous Sediment,Urine Rare /hpf; Appearance,Urine Cloudy (Clear); Bilirubin,Urine Negative (Negative); Blood,Urine Moderate (Negative); Color,Urine Colorless; Glucose,Urine (UA) Negative (Negative); Hyaline Casts,Urine 1 /lpf (0-2); Ketones,Urine Negative (Negative); Leukocyte Esterase,Urine Trace (Negative); Mucus,Urine Rare /hpf; Nitrite,Urine Negative (Negative); PH, Urine 6.5 (5.0-8.0); Protein,Urine Negative (Negative); RBC,Urine 58 /hpf (0-5); Specific Gravity,Urine 1.022 (1.001-1.035); Squamous Epithelial Cell,Urine 7 /hpf (0-4); Urobilinogen,Urine <2.0 mg/dL (<2.0); WBC,Urine 2 /hpf (0-5)
[2024-03-17 00:35] VITALS: RESP 16
[2024-03-17 00:46] LABS: HCG,Quantitative Serum 408.2 mIU/mL
--- NOTE | 2024-03-17 06:03 | US ---
EXAMINATION TYPE: Transabdominal DATE OF EXAM: 03/17/2024 12:33 AM COMPARISON: NONE CLINICAL INDICATION: Female, 28 years old with history of pelvic pain; Patient states that she is 8 w eeks and is having cramping and bleeding that started today EXAM PERFORMED: Transabdominal (TA) EXAM MEASUREMENTS: GESTATIONAL AGE / DATING Physician Established: Not yet established Dates by LMP: (8 weeks/5 days) EDC: 10/21/2024 Dates by First Scan: No previous this is first scan Dates by Current Scan for: No IUP seen at this time MATERNAL ANATOMY Uterus: 9.0 x 4.9 x 6.4cm. No IUP seen at this time. Endometrium appears thickened and measures 1.9cm Right Ovary: 2.5 x 1.9 x 1.8cm Left Ovary: 2.3 x 2.5 x 1.9cm Post CDS / Adnexa: Small amount of free fluid seen in the posterior cul de sac Presence of free fluid: Yes Presence of corpus luteal cyst: Not visualized on todays exam Presence of subchorionic bleed: No Date of LMP: 01/15/2024 Beta HcG (if available): Not available at this time Anteverted uterus. Endometrial stripe is thickened to 19 mm. No gestational sac, yolk sac, or p ole identified. Tiny amount of free fluid in the pelvic cul-de-sac. Both ovaries identified. No suspicious extraovarian adnexal mass is seen. IMPRESSION: Findings could reflect too early to visualize intrauterine . Spontaneous abortio n must strongly be considered based on patient's history. Ectopic not entirely excluded. Se rial beta hCG and ultrasound follow-up is advised.
[2024-03-17 06:13] VITALS: BP 129/72; PULSE 79
== END 2024-03-17 06:13 | disposition home or self-care (01) ==
LOC: EC 23:33
DX: O20.9 Hemorrhage in early pregnancy, unspecified (principal); F17.290 Nicotine dependence, other tobacco product, uncomplicated; Z3A.08 8 weeks gestation of pregnancy
CPT/HCPCS: 36415; 76801; 80048; 81001; 84702; 85025; 86850; 86900; 86901; 99284

== ENCOUNTER 2024-05-05 03:05 | Emergency (ER) | payer OTHER ==
[2024-05-05 03:17] VITALS: TEMP 98
[2024-05-05] MEDS: SODIUM CHLORIDE 0.9% 500 ML 500 ML IV STA ×2 (03:58→06:01)
[2024-05-05 04:03] LABS: Basophils % (A) 0 %; Eosinophils # (A) 0.1 k/uL (0-0.7); Eosinophils % (A) 1 %; HCT 33.5 % (34.0-46.0); HGB 11.6 gm/dL (11.4-16.0); Lymphocytes % (A) 9 %; MCH 28.4 pg (25.0-35.0); MCHC 34.5 g/dL (31.0-37.0); MCV 82.5 fL (80.0-100.0); Mean Platelet Volume 6.7; Monocytes # (A) 0.5 k/uL (0-1.0); Monocytes % (A) 4 %; Neutrophils # (A) 10.4 k/uL (1.3-7.7); Neutrophils % (A) 86 %; Platelet Count 278 k/uL (150-450); RBC 4.07 m/uL (3.80-5.40); RDW 13.8 % (11.5-15.5); WBC 12.2 k/uL (3.8-10.6)
--- NOTE | 2024-05-05 04:08 | ED ---
Female Urogenital HPI <JayJosh - Last Filed: 05/05/24 08:24> - General Source: patient Mode of arrival: ambulatory Limitations: no limitations - History of Present Illness MD Complaint: vaginal bleeding, pelvic pain -: hour(s) Location: LLQ, RLQ Radiation: non-radiating Severity: severe Quality: cramping Consistency: constant Improves with: none Worsens with: none Patient : Yes Number of weeks : 13 Associated Symptoms: vaginal bleeding, abdominal pain - Related Data : 5 Para: 3 A: 1 <Oscar Murillo - Last Filed: 06/08/24 11:52> - General Chief complaint: Vaginal Bleeding Stated complaint: Hemorraging Time Seen by Provider: 05/05/24 03:44 - History of Present Illness Initial comments: This patient is a 28-year-old woman, G5, P3, Ab1, who believes she is appr oximately 12 weeks , and presents with complaint of pelvic cramping and bleeding. She had gone to the [facility] this evening around 4 hours ago, at that time she was having mainly cramping may be a little spotting, and was told that they suspected she was having a miscarriage. The patient went home and began to have bleeding much heavier than a period. She states that a friend of hers told her she should bleed into a bag for 20 minutes and then bring that up here and be seen. Patient states she does not know what blood type she has. She has not noted tissue. Patient denies chest pain, dyspnea, diaphoresis. She does feel lightheaded when she is standing. (Oscar Murillo) - Related Data Home Medications Medication Instructions Recorded Confirmed Trz-Qdtm-Afilo Acid 1 cap PO DAILY 10/01/18 08/10/23 [-U Capsule (formulary)] Albuterol Sulfate [Proair Hfa] 1 - 2 puff INHALATION RT-QID PRN 10/10/18 07/14/23 Sertraline [Zoloft] 25 mg PO DAILY 05/01/23 08/10/23 diphenhydrAMINE HCL [Benadryl] 25 mg PO HS 05/01/23 07/14/23 Previous Rx's Medication Instructions Recorded Albuterol Inhaler [Ventolin Hfa 2 puff INHALATION RT-QID #8 gm 10/06/21 Inhaler] Ibuprofen [Motrin] 600 mg PO Q6HR PRN #40 tab 08/10/23 Cephalexin [Keflex] 500 mg PO Q6HR 5 Days #20 cap 09/26/23 Allergies Allergy/AdvReac Type Severity Reaction Status Date / Time No Known Allergies Allergy Verified 05/05/24 03:17 Review of Systems ROS Other: All systems not noted in ROS Statement are negative. <Josh Thompson - Last Filed: 05/05/24 08:24> ROS Other: All systems not noted in ROS Statement are negative. Constitutional: Denies: fever, chills Respiratory: Denies: cough, dyspnea Cardiovascular: Denies: chest pain, palpitations, edema, syncope Gastrointestinal: Reports: abdominal pain. Denies: nausea, vomiting, diarrhea, constipation Genitourinary: Reports: abnormal menses. Denies: dysuria, frequency, hematuria Musculoskeletal: Denies: back pain Skin: Denies: rash Neurological: Denies: headache, weakness, numbness Hematological/Lymphatic: Denies: easy bleeding <Oscar Murillo - Last Filed: 06/08/24 11:52> ROS Statement: Those systems with pertinent positive or pertinent negative responses have been documented in the HPI. Past Medical History Past Medical History: Asthma, Seizure Disorder Additional Past Medical History / Comment(s): migraines, pt had seizure in ER 09/11/16, no seizures since; patient's had 2 previous vaginal deliveries History of Any Multi-Drug Resistant Organisms: None Reported Past Surgical History: No Surgical Hx Reported Past Anesthesia/Blood Transfusion Reactions: No Reported Reaction Past Psychological History: Bipolar Smoking Status: Never smoker, Vaper Past Alcohol Use History: None Reported Past Drug Use History: None Reported - Past Family History Mother Additional Family Medical History / Comment(s): Pt states her mother is addicted to heroin and crack. Father Family Medical History: No Reported History Additional Family Medical History / Comment(s): Pt states her father is incarcerated for sexual assault. <Oscar Murillo - Last Filed: 06/08/24 11:52> General Exam Limitations: no limitations General appearance: alert, in no apparent distress Head exam: Present: atraumatic, normocephalic Eye exam: Present: normal appearance. Absent: scleral icterus, conjunctival injection Neck exam: Present: normal inspection Respiratory exam: Present: normal lung sounds bilaterally. Absent: respiratory distress, wheezes, rales, rhonchi, stridor Cardiovascular Exam: Present: regular rate, normal rhythm, normal heart sounds. Absent: systolic murmur, diastolic murmur, rubs, gallop GI/Abdominal exam: Present: soft. Absent: distended, tenderness, guarding, rebound, rigid, mass External exam: Present: normal external exam Speculum exam: Present: vaginal bleeding. Absent: erythema, vaginal discharge, tissue, laceration By manual exam: Present: uterine enlargement. Absent: adnexal tenderness, adnexal mass Extremities exam: Present: normal inspection, normal capillary refill. Absent: pedal edema, calf tenderness Neurological exam: Present: alert Skin exam: Present: warm, dry, intact, normal color. Absent: rash <Oscar Murillo - Last Filed: 06/08/24 11:52> Course Vital Signs 05/05/24 05/05/24 05/05/24 03:13 04:55 06:00 Temperature 98.0 F Pulse Rate 143 H 76 88 Respiratory 22 17 17 Rate Blood Pressure 107/66 89/46 94/54 O2 Sat by Pulse 99 99 99 Oximetry 05/05/24 05/05/24 08:20 08:42 Temperature 98.0 F 98.0 F Pulse Rate 65 92 Respiratory 16 18 Rate Blood Pressure 93/44 99/57 O2 Sat by Pulse 97 98 Oximetry Medical Decision Making - Lab Data Result diagrams: 05/05/24 03:55 <Josh Thompson - Last Filed: 05/05/24 08:24> - Lab Data Result diagrams: 05/05/24 03:55 - EKG Data -: EKG Interpreted by Me EKG shows normal: sinus rhythm (With sinus arrhythmia), axis (Normal), intervals (Normal), QRS complexes (Normal), ST-T waves (Normal) Rate: normal (83 bpm) <Oscar Murillo - Last Filed: 06/08/24 11:52> - Medical Decision Making Patient signed out to me pending results of ultrasound. Briefly patient presents for suspected miscarriage versus threatened miscarriage. Pelvic exam completed by previous provider which revealed bleeding with clotting. Patient is approximately 12 weeks . We have no documented evidence of definitive IUP on ultrasound here however patient states that her dating is done via ultrasound at 12 weeks and therefore does have a ultrasound confirming definitive IUP outpatient according to the patient. Laboratory studies remarkable for no significant anemia. Elevated quantitative hCG. Pelvic ultrasound as interpreted by myself reveals no intrauterine contents. Suspected spontaneous miscarriage based on patient stating she has a known definitive IUP as well as absence of any fetus in the uterus in the setting of vaginal bleeding. I spoke with Dr. Mejia, the patient's EMT and we reviewed the laboratory studies, vitals, as well as the imaging. She was in agreement the plan for the patient to follow-up with her on Monday 05/07 and recommended the patient contact nursing today to set up an appointment. Dr. Murillo the previous provider was still available to update the patient. I conveyed Dr. Mejia's discussion that I had with her to him and he updated the patient and discharged her. Diagnosis/symptom? @ -Miscarriage Acute, or Chronic, or Acute on Chronic? @ -Acute Uncomplicated (without systemic symptoms) or Complicated (systemic symptoms)? @ -Complicated Side effects of treatment? @ -None Exacerbation, Progression, or Severe Exacerbation] @ -No Poses a threat to life or bodily function? @ -Potentially, if patient hemorrhages however unlikely at this time. (Josh Thompson) Dr. Thompson did discuss the patient's ultrasound findings and condition with Dr. Mejia who will see the patient in her clinic on Friday. I discussed the results and the conversation with the patient who states that the bleeding has nearly completely stopped at this point. She would like to go home. Discussed return parameters and the follow-up. Was pt. sent in by a medical professional or institution (, PA, FIELD CONTROL INSPECTOR, urgent care, hospital, or correction...) When possible be specific @ -[No] Did you speak to anyone other than the patient for history (EMS, parent, family, police, friend...)? What history was obtained from this source @ -[No] Did you review nursing and triage notes (agree or disagree)? Why? @ -[I reviewed and agree with nursing and triage notes] Were old charts reviewed (outside hosp., previous admission, EMS record, old EKG, old radiological studies, urgent care reports/EKG's, correction records)? Report findings @ -[No old charts were reviewed] Differential Diagnosis (chest pain, altered mental status, abdominal pain women, abdominal pain men, vaginal bleeding, weakness, fever, dyspnea, syncope, headache, dizziness, GI bleed, back pain, seizure, CVA, palpatations, mental health, musculoskeletal)? @ -[Differential Vaginal Bleeding: Spontaneous , threatened , molar , ectopic , bloody show, incompetent cervix, abruptioplacenta, placenta previa, uterine rupture, dysfunctional uterine bleeding, hemorrhage, uterine fibroids, this is not meant to be an all-inclusive list. EKG interpreted by me (3pts min.). @ -[As above] X-rays interpreted by me (1pt min.). @ -[None done] CT interpreted by me (1pt min.). @ -[None done] U/S interpreted by me (1pt. min.). @ -[None done] What testing was considered but not performed or refused? (CT, X-rays, U/S, labs)? Why? @ -[None] What meds were considered but not given or refused? Why? @ -[None] Did you discuss the management of the patient with other professionals (professionals i.e. , PA, FIELD CONTROL INSPECTOR, lab, RT, psych nurse, drug abuse social worker, motorcycle assembler, teacher, photographic intelligence officer, case technician)? Give summary @ -[No] Was smoking cessation discussed for >3mins.? @ -[No] Was critical care preformed (if so, how long)? @ -[No] Were there social determinants of health that impacted care today? How? (Homelessness, low income, unemployed, alcoholism, drug addiction, tra nsportation, low edu. Level, literacy, decrease access to med. care, nursing home, rehab)? @ -[No] Was there de-escalation of care discussed even if they declined (Discuss DNR or withdrawal of care, Hospice)? DNR status @ -[No] What co-morbidities impacted this encounter? (DM, HTN, Smoking, COPD, CAD, Can cer, CVA, ARF, Chemo, Hep., AIDS, mental health diagnosis, sleep apnea, morbid obesity)? @ -[None] Was patient admitted / discharged? Hospital course, mention meds given and route, prescriptions, significant lab abnormalities, going to OR and other pertinent info. @ -[hospital course] Undiagnosed new problem with uncertain prognosis? @ -[No] Drug Therapy requiring intensive monitoring for toxicity (Heparin, Nitro, Insulin, Cardizem)? @ -[No] Were any procedures done? @ -[No] (Oscar Murillo) - Lab Data Lab Results 05/05/24 05/05/24 05/05/24 Range/Units 03:50 03:50 03:55 WBC 12.2 H (3.8-10.6) k/uL RBC 4.07 (3.80-5.40) m/uL Hgb 11.6 (11.4-16.0) gm/dL Hct 33.5 L (34.0-46.0) % MCV 82.5 (80.0-100.0) fL MCH 28.4 (25.0-35.0) pg MCHC 34.5 (31.0-37.0) g/dL RDW 13.8 (11.5-15.5) % Plt Count 278 (150-450) k/uL MPV 6.7 Neutrophils % 86 % Lymphocytes % 9 % Monocytes % 4 % Eosinophils % 1 % Basophils % 0 % Neutrophils # 10.4 H (1.3-7.7) k/uL Lymphocytes # 1.0 (1.0-4.8) k/uL Monocytes # 0.5 (0-1.0) k/uL Eosinophils # 0.1 (0-0.7) k/uL Basophils # 0.0 (0-0.2) k/uL HCG, Quant 704492.0 mIU/mL Blood Type A Positive Blood Type Recheck A Pos Bld Type Recheck Status No Disposition <Josh Thompson - Last Filed: 05/05/24 08:24> Is patient prescribed a controlled substance at d/c from ED?: No <Oscar Murillo - Last Filed: 06/08/24 11:52> Clinical Impression: Spontaneous Disposition: HOME SELF-CARE Condition: Good Instructions (If sedation given, give patient instructions): Miscarriage (ED) Additional Instructions: As we discussed, call Dr. Mejia's office today and she will want to see you in the clinic on Friday. As we discussed if there is any change in your condition or you are feeling worse in any way return to the emergency department. Referrals: None,Stated [Primary Care Provider] - 1-2 days Priyanka Mejia, [Doctor of Osteopathic Medicine] - 1-2 days
[2024-05-05] MEDS: TRANEXAMIC 1,000 MG/100ML-NACL 1,000 MG in SALINE 1 100ML.BAG IVPB ONE (04:27)
[2024-05-05] MEDS: MORPHINE SULFATE 4 MG/ML SYRINGE IV STA ×2 (06:03→08:20)
--- NOTE | 2024-05-05 07:54 | US ---
EXAMINATION TYPE: Transabdominal DATE OF EXAM: 05/05/2024 7:43 AM COMPARISON: 03/17/2024 CLINICAL INDICATION: Female, 28 years old with history of vaginal bleeding; Heavy bleeding with cramp ing that started this am EXAM PERFORMED: Transabdominal (TA) EXAM MEASUREMENTS: GESTATIONAL AGE / DATING Physician Established: (11 weeks/3 days) EDC: 11/21/2024 Dates by LMP: (11 weeks/3 days) EDC: 11/21/2024 Dates by First Scan: Previous did not show IUP ( weeks/ days) EDC: Dates by Current Scan for: No IUP seen at this time ( weeks/ days) EDC: MATERNAL ANATOMY Uterus: 11.9 x 7.5 x 7.9 cm Right Ovary: 3.5 x 2.3 x 2.4 cm Left Ovary: 2.7 x 2.6 x 1.2 cm Post CDS / Adnexa: No Presence of free fluid: No Presence of corpus luteal cyst: No Presence of subchorionic bleed: ? YES GESTATION / SURVEY CRL: Not seen ( weeks/ days) MSD: Not seen ( weeks/ days) Yolk Sac (normal less than 6mm): Not seen Heart Rate: NA bpm Rhythm: NA IUP: No IUP seen at this time Nuchal Translucency 10-14wks (normal less than 3mm): NA Age Appropriate Anatomy Cord Insertion: NA Limbs: NA Calvarium: NA Date of LMP: 02/15/2024 Beta HcG (if available): [id number] IMPRESSION: 1. No evidence for intrauterine at this time. This may reflect missed spontaneous . Ectopic is not excluded. Normal early IUP is also a consideration. Correlate clinically wi th serial beta hCG and/or ultrasound.
[2024-05-05 08:44] VITALS: BP 99/57; PULSE 92; RESP 18
== END 2024-05-05 09:00 | disposition home or self-care (01) ==
LOC: EC 03:05
DX: O03.9 Complete or unspecified spontaneous abortion without complication (principal); O99.331 Smoking (tobacco) complicating pregnancy, first trimester; F17.290 Nicotine dependence, other tobacco product, uncomplicated; Z3A.12 12 weeks gestation of pregnancy
CPT/HCPCS: 36415; 93005; 86900; 86901; 85025; 84702; 76801; 99284; 96365; 96375; 96376; 96361 ×4; J2270

== ENCOUNTER 2025-04-05 07:42 | Outpatient (CLI) | payer OTHER ==
[2025-04-05 09:04] LABS: Bacteria,Urine Rare /hpf; Bilirubin,Urine Negative (Negative); Blood,Urine Negative (Negative); Color,Urine Yellow; Glucose,Urine (UA) Trace (Negative); Ketones,Urine 2+ (Negative); Leukocyte Esterase,Urine Negative (Negative); Mucus,Urine Many /hpf; Nitrite,Urine Negative (Negative); PH, Urine 6.0 (5.0-8.0); Protein,Urine Trace (Negative); RBC,Urine 4 /hpf (0-5); Specific Gravity,Urine 1.025 (1.001-1.035); Squamous Epithelial Cell,Urine 7 /hpf (0-4); Urobilinogen,Urine <2.0 mg/dL (<2.0); WBC,Urine 5 /hpf (0-5)
[2025-04-05 09:32] VITALS: BP 118/57; PULSE 114; RESP 16; TEMP 98.5
--- NOTE | 2025-04-08 11:48 | P.MSEPDOC ---
Presenting Problems - Arrival Data Date of Arrival on Unit: 04/05/25 Time of Arrival on Unit: 07:42 Mode of Transport: Ambulatory - Complaint OB-Reason for Admission/Chief Complaint: Pain Comment: constant lower abd cramping and back pain x2 weeks, rates 4 out of 10 Medical History - Information : 5 Para: 3 Term: 2 : 1 Abortions: Spontaneous or Elective: 1 Number of Living Children: 3 - Gestational Age Gestational Age by ARA (wks/days): 23 Weeks and 0 Days Review of Systems - Review of Systems Constitutional: No problems Breast: No problems ENT: No problems Cardiovascular: No problems Respiratory: No problems Gastrointestinal: No problems Genitourinary: No problems Musculoskeletal: No problems Neurological: No problems Skin: No problems Vital Signs - Temperature Temperature: 98.5 F Temperature Source: Temporal Artery Scan - Pulse Right Sitting Pulse Rate: 114 Pulse Assessment Method: Automatic Cuff - Respirations Respiratory Rate: 16 Oxygen Delivery Method: Room Air O2 Sat by Pulse Oximetry: 96 - Blood Pressure Right Arm Blood Pressure: 118/57 Blood Pressure Mean: 77 Blood Pressure Source: Automatic Cuff Physician Notification - Physician Notified Physician Notified Date: 04/05/25 Physician Notified Time: 09:19 Physician: Leo Sharma Order Received: Yes (d/c home) Maternal Triage Index - Non-Urgent/Priority 4 Non-Urgent Priority 4: Yes Criteria Met for Priority 4: dopplered fht 140-150, no contractions, vitals wnl Disposition - Disposition OB Disposition: Discharge to home Discharge Date: 04/05/25 Discharge Time: 09:27 I agree with the RN Medical Screening Exam: Yes Physician's MSE Comment: I have neither seen nor examined the patient. Case reviewed; plan agreed upon as documented in EMR&OBIX.: Yes Diagnosis: RELATED CONDITIONS, UNSPECIFIED, SECOND TRIMESTER
== END 2025-04-05 09:27 | disposition home or self-care (01) ==
LOC: FBPOP 07:42
PROVIDERS: ATTEND Obstetrics & Gynecology
DX: O26.892 Other specified pregnancy related conditions, second trimester (principal); R52 Pain, unspecified; Z3A.23 23 weeks gestation of pregnancy
CPT/HCPCS: 81001; G0463; 99213